=== PATIENT | female | born 1975 | race Caucasian/White ===

== ENCOUNTER 2016-06-09 17:16 | Inpatient (IN) ==
--- NOTE | 2016-06-09 17:57 | Emergency Department Note ---
Disposition Clinical Impression: NSTEMI (non-ST elevated myocardial infarction), Smoker Disposition: Admitted As Inpatient Condition: Good Referrals: NO,PCP [Non-Partnered Physician] - Forms: ED Satisfaction Letter Chest Pain HPI - General Chief Complaint: ED Chest Pain Stated Complaint: L arm pain, chest heaviness Time Seen by Provider: 06/09/16 17:30 Source: patient Limitations: no limitations Vital Signs Reviewed: Yes Nursing Notes Reviewed: Yes - History of Present Illness HPI Narrative: 39-year-old female presents with chief complaint of chest pain that started at 4 :00 in the morning described as dull chest tightness over the left upper chest and left arm that is constant. Her pain is improved since this morning. Pain is associated with shortness of breath that is not exertional in nature, diaphoresis, nausea. She denies vomiting. Patient says she has family history of sudden cardiac of her father at age 49. She is a smoker and smokes 1 pack per day. Denies any history of cardiac disease, hypertension. While signs are normal. We will obtain EKG and troponin and chest x-ray. Severity scale (1-10): 0 - Related Data Home Medications Medication Instructions Recorded Confirmed Ibuprofen/Pseudoephedrine HCl 2 each PO QAM 06/09/16 06/09/16 [Advil Cold-Sinus Liqui-Gels] Omeprazole Magnesium [Prilosec Otc] 20 mg PO DAILY 06/09/16 06/09/16 Tacrolimus [Protopic] 1 appl TP 3XW 06/09/16 06/09/16 Allergies Allergy/AdvReac Type Severity Reaction Status Date / Time Sulfa (Sulfonamide Allergy Rash Verified 06/09/16 17:19 Antibiotics) sulfamethoxazole Allergy Rash Verified 06/09/16 17:19 [From Bactrim] trimethoprim [From Bactrim] Allergy Rash Verified 06/09/16 17:19 bupropion [From Wellbutrin] AdvReac Palpitation Verified 06/09/16 20:09 s formaldehyde AdvReac Unknown Verified 06/09/16 20:09 polyethylene glycol AdvReac Unknown Verified 06/09/16 20:09 Review of Systems: ROS: Constitutional: Denies fevers chills, admits to diaphoresis HEENT: Denies runny nose, sinus congestion, sore throat Heart: admits to chest pain, palpitations Lungs: admits to shortness of breath, cough Abdomen: Denies abdominal pain, vomiting, diarrhea admits to nausea : Denies dysuria Extremeties: Denies leg cramps, swelling Neuro: denies numbness and tingling Psych: denies anxiety and depression Chest Pain PMH - Past Medical History Medical history: Reports: no medical history Psychiatric history: Reports: anxiety, panic disorder - Social History Smoking Status: Current every day smoker Alcohol use: Reports: none Drug use: Reports: none Physical Exam General: Alert and oriented to place, time, self Heart: Regular rate and rhythm no murmur, reproducible chest pain with palpation Lungs: Clear to auscultation bilaterally Abdomen: Soft nontender nondistended with positive bowel sounds Extremities: Normal capillary refill, absent pedal edema Psych: normal mood and affect - General Limitations: no limitations General appearance: alert Course Course Narrative: Patient's vitals are stable, EKG shows sinus rhythm. Chest x-ray negative for acute changes. - Reevaluation(s) Reevaluation #1: Troponin was 10.01. Interventional cardiology notified and patient will undergo emergent cardiac catheterization. Patient was given aspirin 325 mg, and Birllinta 100mg, 1 L fluid bolus as patient's blood pressure decreased into systolics 80s and repeat partial pressure was not systolics 90s. Chest x-ray was within normal limits. Time: 20:14 Vital Signs Temperature 98.2 F 06/09/16 17:19 Pulse Rate 66 06/09/16 17:19 Respiratory Rate 14 06/09/16 17:19 Blood Pressure 109/71 06/09/16 17:19 O2 Sat by Pulse Oximetry 100 06/09/16 17:19 Temperature 98.2 F 06/09/16 17:19 Pulse Rate 71 06/09/16 20:00 Respiratory Rate 16 06/09/16 20:00 Blood Pressure 98/61 06/09/16 20:00 O2 Sat by Pulse Oximetry 100 06/09/16 20:00 Oxygen Delivery Oxygen Delivery Room Air Chest Pain - MDM Narrative Medical decision making narrative: NSTEMI with ongiong ischemia as patient continues to have chest pain, decrease in BP with systolic in 90s, and troponin 10.05. EKG shows sinus rhythm without st elevation or depression. Patient will undergo cardiac catherization. Dr. Montalvo accepted patient. - Lab Data Result diagrams: 06/09/16 18:59 06/09/16 18:59 Lab Results 06/09/16 06/09/16 06/09/16 Range/Units 18:59 18:59 18:59 WBC 10.9 (4.3-11.1) K/mcL RBC 4.06 (3.82-4.97) M/mcL Hgb 12.3 (11.5-15.4) g/dL Hct 36.8 (35.3-44.9) % MCV 90.6 (83.0-100.0) fL MCH 30.3 (28.0-33.3) pg MCHC 33.4 (31.6-35.5) g/dL RDW 13.6 (11.5-14.5) % Plt Count 301 (140-400) K/mcL MPV 8.4 L (9.4-12.4) fL Immature Plt Fraction 1.6 (1.1-6.1) % PT 12.0 (9.4-12.1) Seconds INR 1.1 Sodium (136-145) mEq/L Potassium (3.5-4.5) mEq/L Chloride (98-109) mEq/L Carbon Dioxide (19-29) mEq/L BUN (7-20) mg/dL Creatinine (0.57-1.11) mg/dL Est GFR ( Amer) (> 60) Est GFR (Non-Af Amer) (> 60) BUN/Creatinine Ratio (6-26) Glucose (70-99) mg/dL Calculated Osmolality (280-300) Calcium (8.6-10.8) mg/dL Troponin I 10.05 H* (0-0.03) ng/mL 06/09/16 Range/Units 18:59 WBC (4.3-11.1) K/mcL RBC (3.82-4.97) M/mcL Hgb (11.5-15.4) g/dL Hct (35.3-44.9) % MCV (83.0-100.0) fL MCH (28.0-33.3) pg MCHC (31.6-35.5) g/dL RDW (11.5-14.5) % Plt Count (140-400) K/mcL MPV (9.4-12.4) fL Immature Plt Fraction (1.1-6.1) % PT (9.4-12.1) Seconds INR Sodium 138 (136-145) mEq/L Potassium 4.0 (3.5-4.5) mEq/L Chloride 103 (98-109) mEq/L Carbon Dioxide 26 (19-29) mEq/L BUN 15 (7-20) mg/dL Creatinine 0.77 (0.57-1.11) mg/dL Est GFR ( Amer) > 60 (> 60) Est GFR (Non-Af Amer) > 60 (> 60) BUN/Creatinine Ratio 19 (6-26) Glucose 88 (70-99) mg/dL Calculated Osmolality 286 (280-300) Calcium 9.7 (8.6-10.8) mg/dL Troponin I (0-0.03) ng/mL - EKG Data EKG results narrative: Sinus rhythm, no ST-T wave changes, no T-wave inversions, 1 PAC, EKG normal sinus rhythm.
--- NOTE | 2016-06-09 18:05 | Emergency Department Note ---
START Narrative - START START: I examined this patient and my medical decision-making was reviewed with the SEX OFFENDER TREATMENT PROFESSIONAL/PA/Advanced Practice Nurse/Resident Physician. I agree with the documented findings, disposition and treatment plan as described except to the extent set forth below. Patient does have chest tightness which began at 4:00 in the morning at home and woke her from sleep and has been constant. I did confirm this with her twice. Does have associated diaphoresis. No vomiting. Was lightheaded earlier but not now. It does radiate to the left arm. Concerning initial story and I did review the EKG showing normal sinus rhythm with a rate of 62 without acute ischemic change - there are some PVCs. The patient does have labs ordered including troponin, chest x-ray and will be watched on the groundwater monitoring technician [id number] We did get the troponin back which was significantly elevated and I did speak with the patient again and she does have ongoing pain. Additional concern is that the patient's blood pressure did decrease to 80 systolic and a recheck was 90, so she is getting a bolus of IV fluid and did receive aspirin. I did speak with the document coordinator Dr. Montalvo and he did ask that the blood bank laboratory professional be activated so we did do that and I also spoke with the pharmacist and coordinated doses of heparin bolus and Brilinta which is 180 mg and these were given to the patient. I did check on her again and explained the plan. The patient will be admitted. 2000 Critical care time: 30 minutes
[2016-06-09] MEDS ORDERED: Aspirin 81 MG TAB.CHEW PO STA (19:44)
[2016-06-09 19:45] LABS: Hematocrit 36.8 % (35.3-44.9); Hemoglobin 12.3 g/dL (11.5-15.4); Immature Platelets 1.6 % (1.1-6.1); Mean Corpuscular HGB Conc 33.4 g/dL (31.6-35.5); Mean Corpuscular Hemoglobin 30.3 pg (28.0-33.3); Mean Corpuscular Volume 90.6 fL (83.0-100.0); Mean Platelet Volume 8.4 fL (9.4-12.4); Red Blood Count 4.06 M/mcL (3.82-4.97); Red Cell Distribution Width 13.6 % (11.5-14.5)
[2016-06-09] MEDS ORDERED: 0.9 % Sodium Chloride 1,000 ML ONE (19:49)
[2016-06-09] MEDS ORDERED: *HR* Ticagrelor 90 MG TABLET PO ONE (19:53)
[2016-06-09] MEDS ORDERED: *HR* Heparin 5,000 UNIT/ML VIAL IVP ONE (19:54)
[2016-06-09] MEDS ORDERED: *HR* Heparin 5,000 UNIT/ML VIAL ONE (19:55)
[2016-06-09] MEDS ORDERED: *HR* Ticagrelor 90 MG TABLET ONE (19:55)
[2016-06-09 20:09] LABS: BUN/Creatinine Ratio 19 (6-26); Blood Urea Nitrogen 15 mg/dL (7-20); Calcium 9.7 mg/dL (8.6-10.8); Carbon Dioxide 26 mEq/L (19-29); Chloride 103 mEq/L (98-109); Glucose 88 mg/dL (70-99); Osmolality,Calculated 286 (280-300); Sodium 138 mEq/L (136-145); eGFR For African Americans > 60 (> 60); eGFR For Non-African Americans > 60 (> 60)
--- NOTE | 2016-06-09 20:10 | Cardiology History & Physical ---
Date of Encounter: 06/10/16 Time of Encounter: 21:00 Assessment and Plan (1) Acute DE Current Visit: Yes Status: Acute Ongoing chest discomfort despite medical therapy and troponin 10. Acute DE - emergent left heart catheterization. A/R/B discussed with the patient and she is aware and agreeable with proceeding after obtaining verbal consent. Aspirin , heparin and brilinta given. EF assessment will be completed. The assessment and plan as outlined above was discussed with the patient and/or family members who expressed understanding and agreement. All questions were answered. Qualifiers: Myocardial infarction ST status: non-ST elevation myocardial infarction Qualified Code(s): I21.4 - Non-ST elevation (NSTEMI) myocardial infarction (2) Smoker Current Visit: Yes Status: Acute Cessation counseled. The assessment and plan as outlined above was discussed with the patient and/or family members who expressed understanding and agreement. All questions were answered. (3) Chest pain Current Visit: Yes Status: Acute see acute DE. The assessment and plan as outlined above was discussed with the patient and/or family members who expressed understanding and agreement. All questions were answered. Qualifiers: Chest pain type: chest pain due to myocardial ischemia Ischemic chest pain type: unstable angina pectoris Qualified Code(s): I20.0 - Unstable angina History of Present Illness Chief complaint: chest pain HPI: Ms. Guerrero is a 41 year old female without cardiac history but 1ppd smoker presents with chest discomfort - severe - starting early this morning unrelenting and without relief despite aspirin and nitroglycerin. Troponin found to be 10 and with ongoing chest discomfort, calibration laboratory technician activated emergently. Chest discomfort associated with mild dyspnea and diaphoresis. Past Med Surg Social Fam HX - Past Medical History Medical history: no medical history Psychiatric history: anxiety, panic disorder - Social History Smoking Status: Current every day smoker Smokeless Tobacco Status: No Alcohol use: none Drug use: none Medications and Allergies Ibuprofen/Pseudoephedrine HCl [Advil Cold-Sinus Liqui-Gels] 2 each PO QAM [History] Omeprazole Magnesium [Prilosec Otc] 20 mg PO DAILY 06/09/16 [History] Tacrolimus [Protopic] 1 appl TP 3XW 06/09/16 [History] Allergies Sulfa (Sulfonamide Antibiotics) Allergy (Verified 06/09/16 17:19) Rash sulfamethoxazole [From Bactrim] Allergy (Verified 06/09/16 17:19) Rash trimethoprim [From Bactrim] Allergy (Verified 06/09/16 17:19) Rash bupropion [From Wellbutrin] Adverse Reaction (Verified 06/09/16 20:09) Palpitations formaldehyde Adverse Reaction (Verified 06/09/16 20:09) Unknown polyethylene glycol Adverse Reaction (Verified 06/09/16 20:09) Unknown All Systems Review: A 10-system review of systems was performed and is negative for pertinent findings except as documented above in the HPI. - Constitutional Constitutional: no chills, no fever(s) - EENT Eyes: no blurred vision, no loss of vision Nose, mouth and throat: no bleeding gums, no epistaxis - Cardiovascular Cardiovascular: chest pain at rest, chest pain with exertion - Respiratory Respiratory: no dyspnea, no hemoptysis - Gastrointestinal Gastrointestinal: no hematemesis, no hematochezia - Genitourinary Genitourinary: no hematuria, no nocturia - Musculoskeletal Musculoskeletal: no muscle cramps, no muscle weakness - Integumentary Integumentary: no erythema, no unusual bruising - Neurological Neurological: no focal weakness, no loss of vision - Psychiatric Psychiatric: no anxiety, no depression - Hematological/Lymphatic Hematologic/Lymphatic: no easy bleeding, no easy bruising Physical Examination Vital Signs, Last 4 Hours Temp Pulse Resp BP Pulse Ox 06/09/16 20:00 71 16 98/61 100 06/09/16 19:36 54 18 90/52 100 06/09/16 18:17 73 18 105/73 100 06/09/16 17:39 61 18 100 06/09/16 17:19 98.2 F 66 14 109/71 100 General: Other (distressed) HEENT: Atraumatic Neck: No JVD Cardiac: Reg Rate and Rhythm Lungs: Normal Breath Sounds Neuro: Alert and responsive Abdomen: Soft Skin: No rashes noted on visualized skin Musculoskeletal: No Chest Wall Tenderness Extremities: No Edema Results 06/10/16 02:33 06/10/16 02:33 Lab Results 06/09/16 06/09/16 18:59 18:59 WBC 10.9 Hgb 12.3 Hct 36.8 Plt Count 301 Troponin I 10.05 H*
[2016-06-09 20:19] LABS: INR 1.1
[2016-06-09] MEDS ORDERED: *HR* FentaNYL (PF) 100 MCG/2 ML VIAL ONE (20:22)
[2016-06-09] MEDS ORDERED: Verapamil 5 MG/2 ML VIAL ONE (20:22)
[2016-06-09] MEDS ORDERED: *HR* Midazolam HCl 2 MG/2 ML VIAL ONE ×3 (20:22→21:03)
[2016-06-09] MEDS ORDERED: 0.9 % Sodium Chloride 2,000 ML ONE (20:23)
[2016-06-09] MEDS ORDERED: *HR* Heparin 10,000 UNIT/10 ML VIAL ONE (20:23)
[2016-06-09] MEDS ORDERED: Heparin 1,000 UNITS/500 mL NS 500 ML ONE (20:23)
[2016-06-09] MEDS ORDERED: Nitroglycerin 1,000 MCG/10 ML VIAL IV ONE (20:23)
--- NOTE | 2016-06-09 20:47 | Pre-Sedation Evaluation ---
Pre-sedation evaluation - Pre-sedation checklist Date of procedure: 06/09/16 Procedure: [facility] Recent Vitals: Last Vital Signs Temp 98.2 F 06/09/16 17:19 Pulse 71 06/09/16 20:00 Resp 18 06/09/16 20:42 BP 98/31 06/09/16 20:42 Pulse Ox 100 06/09/16 20:00 H&P (including ROS) documented in medical record: Yes Previous reaction to sedatives/anesthetics: No Dietary Status: unknown Airway Assessment: Patient can open mouth completely, TMJ function normal Dentition: No loose teeth or bridges Possible difficult airway: No ASA Classification *see protocol: CLASS II-Mild systemic disease, E-EMERGENCY- Add to any of the above to indicate emergent Plan of Care: Pt appropriate candidate for procedure/moderate/conscious sedation , Risks/benefits of procedure/sedation discussed w/ patient/family, If not NPO; Risk of intake outweiged by necessity to perform procedure
[2016-06-09] MEDS ORDERED: *HR* HYDROcodone/Acet 5/325 mg TABLET PO PRN (20:49)
[2016-06-09] MEDS ORDERED: *HR* Morphine 2 MG/ML SYRINGE IVP PRN (20:49)
[2016-06-09] MEDS ORDERED: Acetaminophen 325 MG TABLET PO PRN (20:49)
[2016-06-09] MEDS ORDERED: Ondansetron 4 MG/2 ML VIAL IVP PRN (20:49)
[2016-06-09] MEDS ORDERED: Nicotine 21 MG PATCH.TD24 TD PRN (20:51)
[2016-06-09] MEDS ORDERED: Tirofiban 5 MG/100ML 5 MG/100 ML BAG IV ONE (21:08)
--- NOTE | 2016-06-09 21:46 | Invasive Diagnostic Lab Proc ---
Name: Sandra Guerrero Date of Study: 06/09/2016 Date: 1975 Ht: 66.9in Medical Record#: [id number] Age: 41 Wt: 194.89lb Gender: Female BSA: 2. Order #: [id number] BMI: 30.59 Physicians Procedure Physician: Kamaljit Montalvo MD, [facility] Referring MD: Referring MD: Staff Name Position Time In Sites, Samantha RT (R) Monitor 08:57 PM Taylor Sen RT Scrub 08:57 PM Heydi Fuentes RN Shoe Worker 08:57 PM Indications Indication Non-Stemi Acute SD Procedures Performed Procedure L HRT ARTERY/VENTRICLE ANGIO PRQ CARD REVASC SD 1 VSL Pre-Procedure Checklist Informed consent is complete signed and on chart. H\\T\\P is on chart. ID band is on and ID verified with patient. Patient NPO for procedure The procedure was described for the patient and questions were answered. Blood Pressure: 135/80 ECG is on chart. Rhythm: NSR Plan of Care Patient will tolerate the procedure without complications. Adequate level of comfort will be maintained. Hemodynamics will remain stable Patient will recover from procedure without complications. Respiratory function will be maintained. Cardiac rhythm will remain stable. Patient temperature will be maintained. Patient and/or family have verbalized understanding of the procedure. Patient Education Intravenous Access Time IV Size Location DC'd Fluid/Drip Rate Units RN 08:33 PM 20g 1 1/4" Patent On Arrival Rt Arm 0.9NaCl 25 ml/hr Heydi Feuntes RN 08:33 PM 18g 1 1/4" Patent On Arrival Lt Antecubital Allergies Sulfa (Sulfonamide Antibiotics) polyethylene glycol SULFA (sulfonamide) Propylene Glycol formaldehyde trimethoprim sulfamethoxazole Vital Signs Time BP (mmHg) HR (bpm) O2 Sat. RR (bpm) LOC 08:56 PM 135 / 80 68 100 % 16 5 = Fully awake and oriented or at pre-proc level 09:01 PM / % 5 = Fully awake and oriented or at pre-proc level 09:01 PM / % 5 = Fully awake and oriented or at pre-proc level 08:55 PM 135 / 80 70 100 % 17 09:00 PM 111 / 67 65 100 % 10 09:05 PM 110 / 64 71 96 % 16 09:07 PM 111 / 65 73 96 % 14 09:10 PM 109 / 69 72 96 % 14 09:12 PM 116 / 76 77 96 % 14 09:15 PM 110 / 66 78 96 % 14 09:18 PM 112 / 73 78 97 % 14 09:20 PM 117 / 76 78 98 % 14 09:25 PM 119 / 80 78 100 % 14 Procedural Medications Time Medication Dose Units Method Given By 09:00 PM Oxygen 2 L/min nasal cannula Heydi Fuentes RN 09:00 PM Versed 3 mg Intravenous Heydi Fuentes RN 09:00 PM Fentanyl 50 mcg Intravenous 09:01 PM Fentanyl 50 mcg Intravenous Heydi Fuentes RN 09:02 PM Versed 1 mg Intravenous Heydi Fuentes RN 09:05 PM Nitroglycerin 100 mcg Intracoronary Kamaljti Montalvo MD 09:11 PM Aggrastat Bolus: 46 ml Intravenous Heydi Fuentes RN 09:11 PM Aggrastat 5mg/100ml 16.5 ml Intravenous Heydi Fuentes RN ASA Classification: CLASS II- Mild systemic disease (i.e. well-controlled diabetes, hypertension, asthma, cigarette smoking) Emergent Procedure: ASA score is assumed Candido Score Preprocedure Postprocedure Activity 2- Moves 4 extremities sustained head lift Activity 2- Moves 4 extremities sustained head lift Circulation 2- SBP +/= 20 points of pre-anesthetic level Circulation 2- SBP +/= 20 points of pre-anesthetic level Consciousness 2- Awake and alert oriented x 3 Consciousness 2- Awake and alert oriented x 3 O2 Saturation 2- Able to maintain O2 satruation of 92% on room air O2 Saturation 2- Able to maintain O2 satruation of 92% on room air Respiratory 2- Able to deep breathe and cough well Respiratory 2- Able to deep breathe and cough well Total Score 10 Total Score 10 Contrast Agent: Isovue Diagnostic Contrast: 64 ml Total Contrast: 64 ml Fluoro Dose: 440 mGy Activated Clotting Time Time Seconds to Clot 09:22 PM 182 Procedure Log Time Note Enter By 08:29 PM CathStat 08:44 PM Pt arrived to pit laborer 2 at 20:44 scoates 08:44 PM Samantha Harkins RT (R) Position: Monitor Time in: 20:44 scoates 08:44 PM Taylor Sen RT Position: Scrub Time in: 20:44 scoates 08:44 PM Heydi Fuentes RN Position: Shoe Worker Time in: 20:44 scoates 08:45 PM Patient charges- Angio tray pack, Navilyst 3mm J, Pulse Oximetry and ACIST tubing and transducer tsites 08:47 PM Hair removed from procedure site in procedure lab using clippers. Bilateral groin prepped with Chloraprep by Shahana, Samantha HICKEY (R), safety strap applied then patient was draped. Skin intact. tsites 08:49 PM Time: 20:49 Oxygen on at 2 L/min per nasal cannula by Heydi Fuentes RN tsites 08:51 PM Physician arrived 20:51 tsites 08:54 PM Vitals capture started with the following parameters, Patient=Adult, Interval=5 min, Initial Whmcqsfm=833 mmHg, Deflation Rate=5 mmHg, Cuff placed on Left Arm 08:55 PM HR=70 bpm, MDWH=711/80 mmhg, AiN7=274.0 %, Resp=17 B/min 08:58 PM Procedure start 20:58 tsites 08:58 PM Time out performed according to hospital policy tsites 08:59 PM Recorded ECG: HR=67 Condition=Condition 1 09:00 PM HR=65 bpm, ALBS=613/67 mmhg, WsK8=002.0 %, Resp=10 B/min 09:00 PM Time: 21:00 Versed 3 mg Intravenous Given by Heydi Fuentes RN [facility] 09:00 PM Time: 21:00 Fentanyl 50 mcg Intravenous Given by Heydi Fuentes RN [facility] 09:01 PM Time: 21:01 Patient comfortable and pain free: Yes tsites 09: PM Time: 21:01LOC: 5 = Fully awake and oriented or at pre-proc level tsites 09:01 PM Access obtained by percutaneous puncture. 6Fr 10cm Terumo Talpa sheath placed in right Femoral artery. [id number] tsites 09:01 PM 5Fr FR 4 catheter inserted over the wire DNC tsites 09:01 PM RCA angiography performed in multiple views. tsites 09: PM 0.035 145cm Navilyst 3mmJ wire [id number] [facility] 09:02 PM Time: 21:01 Fentanyl 50 mcg Intravenous Given by Heydi Fuentes RN [facility] 09:02 PM Time: 21:02 Versed 1 mg Intravenous Given by Heydi Fuentes RN [facility] 09:02 PM Recorded Pressure: Ao, HR=69, Condition=Condition 1 (Aorta) Ao 80/64/72 09:02 PM Coronary Dominance: right tsites 09:02 PM Lesion found in Mid RCA. Pre Stenosis: 99 Pre SKYLA Flow: tsites 09:03 PM LCA angiography performed in multiple views. tsites 09:03 PM PCI Status Emergency tsites 09:03 PM PCI Indication: PCI for high risk Non-STEMI or unstable angina tsites 09:03 PM PCI lesion in Mid RCA. tsites 09:03 PM 6Fr JR 4 Runway guide catheter was used to cannulate the PCI vessel successfully. reused? No tsites 09:03 PM Inflation device was opened. tsites 09:05 PM HR=71 bpm, QPLH=368/64 mmhg, SpO2=96.0 %, Resp=16 B/min 09:05 PM .014 PT Graphix 182cm guide wire across target lesion- successful. reused? No tsites 09:05 PM Time: 21:05 Nitroglycerin 100 mcg Intracoronary Given by Kamaljit Montalvo MD tsites 09:06 PM NIBP STAT measurement started. 09:06 PM 2.0 mm x 12 mm Emerge Monorail balloon across target lesion- successful. reused? No tsites 09:07 PM Balloon inflated @ 14 ryder for 10 seconds tsites 09:07 PM HR=73 bpm, TKJR=161/65 mmhg, SpO2=96 %, Resp=14 B/min 09:08 PM Balloon catheter removed intact. tsites 09:08 PM 2.5mm x 32mm Synergy drug-eluting stent across target lesion- successful Lot #[id number] tsites 09:09 PM Stent deployed @ 12 ryder for 13 seconds tsites 09:10 PM Recorded Pressure: Ao, HR=72, Condition=Condition 1 (Aorta) Ao 72/51/61 09:10 PM HR=72 bpm, HJKJ=528/69 mmhg, SpO2=96 %, Resp=14 B/min 09:11 PM 3.0 mm x 8mm NC Emerge balloon across target lesion- successful. reused? No tsites 09:11 PM Time: 21:11 Aggrastat Bolus: 46 ml Intravenous Given by Heydi Fuentes RN Estrada pump tsites 09:12 PM Time: 21:11 Aggrastat 5mg/100ml 16.5 ml Intravenous Given by Heydi Fuentes RN Estrada pump tsites 09:12 PM NIBP STAT measurement started. 09:12 PM Balloon inflated @ 12 ryder for 8 seconds tsites 09:12 PM HR=77 bpm, YKJT=144/76 mmhg, SpO2=96 %, Resp=14 B/min 09:12 PM Balloon inflated @ 16 ryder for 8 seconds tsites 09:13 PM Recorded Pressure: Ao, HR=77, Condition=Condition 1 (Aorta) Ao 95/66/80 09:13 PM Balloon inflated @ 18 ryder for 14 seconds tsites 09:14 PM Balloon inflated @ 20 ryder for 6 seconds tsites 09:15 PM HR=78 bpm, IFWB=047/66 mmhg, SpO2=96.0 %, Resp=14 B/min 09:15 PM Balloon catheter removed intact. tsites 09:15 PM Guide wire removed intact. tsites 09:15 PM Guide catheter removed intact. tsites 09:16 PM 5Fr Pigtail catheter inserted over the wire [facility] tsites 09:16 PM Catheter selectively placed in left ventricle tsites 09:16 PM Time: 21:01LOC: 5 = Fully awake and oriented or at pre-proc level tsites 09:17 PM Bolus angiogram of left Ventricle complete: 10 ml/sec for a total of 20 mls tsites 09:17 PM Recorded Pressure: LV, Ao, HR=74, Condition=Condition 1 (Left Ventricle) LV 91/18/35, (Aorta) Ao 96/55/72 09:17 PM Catheter removed tsites 09:17 PM Wire removed tsites 09:18 PM Bolus angiogram of right Femoral complete: 2 ml/sec for a total of 4 mls tsites 09:18 PM NIBP STAT measurement started. 09:18 PM HR=78 bpm, JWQM=442/73 mmhg, SpO2=97.0 %, Resp=14 B/min 09:20 PM Procedure completed at 21:20 tsites 09:20 PM HR=78 bpm, DSAZ=563/76 mmhg, SpO2=98 %, Resp=14 B/min 09:21 PM Sign out completed: Radiation Dose 440 mGy Fluoro Time: 5.2 Isovue 370 - 500ml contrast 64 ml given by Kamaljit Montalvo MD, [facility]. Complications: NoneCardiac Rehab Consult needed: YesConfirmed administered medications: Yes tsites 09:23 PM At 21:22 the ACT was 182 seconds. tsites 09:25 PM Isovue 370 - 500ml,1 Bottle(s) used. tsites 09:25 PM Sheath left in place to be pulled on floor/holding areaV+Pad tsites 09:25 PM HR=78 bpm, RSYS=364/80 mmhg, IlJ7=901 %, Resp=14 B/min 09:25 PM Post ECG NSR tsites 09:25 PM Post Blood Pressure 119/80 tsites 09:25 PM 21:25 Post Pulses Bilateral DP \\T\\ PT 2+ tsites 09:26 PM Information taught Cardiac Cath and PCI tsites 09:27 PM Education needs Procedure, Plan of Care, and Responsibilities of Patient in Care tsites 09:27 PM Learning barriers :None tsites 09:27 PM Education Methods Verbal tsites 09:27 PM Education evaluation Able to repeat information tsites 09:27 PM Site status No bleeding/hematoma - Rt Groin as reported by Taylor Sen RT at 21:27 tsites 09:28 PM Plavix, Effient or Brilinta given Yes in ER tsites 09:32 PM Report given to emi AVILES Pt taken to ICU Room #5. 21:32 tsites 09:32 PM Delay to floor No tsites 09:32 PM Patient out of room: 21:32 tsites 09:33 PM Family placed in consult room. tsites 09:35 PM Lesion found in Mid LAD. Pre Stenosis: 30 Pre SKYLA Flow: tsites 09:36 PM Lesion found in Proximal Circumflex. Pre Stenosis: 30 Pre SKYLA Flow: tsites 09:36 PM Mid/Distal Left Anterior Descending Coronary Artery and diagonal branches with 30% stenosis. If graft is supplying this area, 0 % stenosis tsites 09:36 PM Circumflex, Obtuse Marginal, Left Posterior Descending, and Left Posterolateral Coronary Arteries with 30 % stenosis. If graft is supplying this area, 0 % stenosis tsites 09:36 PM Right Coronary, Right Posterior Descending Arteries with Right Posterolateral and Acute Marginal branches with 99 % stenosis. If graft is supplying this area, 0 % stenosis tsites Complications Complication None Hemodynamics Pressures Site Systolic/A Wave Diastolic/V Wave Mean AO 80 64 72 AO 72 51 61 AO 95 66 80 LV 91 18 35 AO 96 55 72 Post Procedure Information Blood Pressure: 119/80 mmHg Rhythm: NSR Post procedural instructions were given Closure Device Time Device Success/Fail 06/09/2016 9:33:00 PM Manual Compression Site Checks Time Location Status Staff Sheath In? Note 09:27 PM Rt Groin No bleeding/hematoma Taylor Sen RT Pulses Time Site Pre-Procedure Post-Procedure Note 06/09/2016 8:33:00 PM Bilateral DP \\T\\ PT 2+ 9:25:00 PM Bilateral DP \\T\\ PT 2+ Updated by [facility], RT (R) on 06/09/2016 9:38:45 PM [facility], RT electronically signed on 06/09/2016 9:39:53 PM with status of Final
[2016-06-09] MEDS ORDERED: *HR* LORazepam 2 MG/ML VIAL IVP PRN (21:50)
[2016-06-09] MEDS ORDERED: Tirofiban 12.5 MG/250ML 12.5 MG/250 ML BAG IVC SCH (22:00)
[2016-06-09] MEDS ORDERED: *HR* Atropine Sulfate 1 MG/10 ML SYRINGE ONE (22:25)
[2016-06-10 02:51] LABS: Basophils % 0.3 %; Eosinophils # 0.1 K/mcL (0.0-0.6); Eosinophils % 0.9 %; Hematocrit 34.9 % (35.3-44.9); Hemoglobin 11.7 g/dL (11.5-15.4); Immature Granulocytes % 0.3 % (0-4); Lymphocytes # 2.8 K/mcL (0.6-4.6); Lymphocytes % 25.7 %; Mean Corpuscular HGB Conc 33.5 g/dL (31.6-35.5); Mean Corpuscular Hemoglobin 30.6 pg (28.0-33.3); Mean Corpuscular Volume 91.4 fL (83.0-100.0); Mean Platelet Volume 8.8 fL (9.4-12.4); Monocytes # 0.6 K/mcL (0.0-1.3); Monocytes % 5.2 %; Neutrophils # 7.3 K/mcL (1.6-8.9); Platelet Count 250 K/mcL (140-400); Red Blood Count 3.82 M/mcL (3.82-4.97); Red Cell Distribution Width 13.8 % (11.5-14.5); Segmented Neutrophils % 67.6 %
[2016-06-10 03:03] LABS: BUN/Creatinine Ratio 17 (6-26); Blood Urea Nitrogen 12 mg/dL (7-20); Calcium 8.4 mg/dL (8.6-10.8); Carbon Dioxide 23 mEq/L (19-29); Chloride 107 mEq/L (98-109); Glucose 120 mg/dL (70-99); Osmolality,Calculated 285 (280-300); Potassium 3.3 mEq/L (3.5-4.5); Sodium 137 mEq/L (136-145); eGFR For African Americans > 60 (> 60); eGFR For Non-African Americans > 60 (> 60)
--- NOTE | 2016-06-10 07:26 | Event Note ---
Date of Encounter: 06/10/16 Time of Encounter: 00:00 - Cardiology Event Note PCI RCA CLARA x 1 for 99% stenosis/thrombus SKYLA 2 flow. Otherwise minimal disease with normal EF. Femoral access given small caliber radial. Patient stable to ICU.
--- NOTE | 2016-06-10 08:31 | Invasive Diagnostic Lab ---
Name: Sandra Guerrero Date of Study: 06/09/2016 Date: 1975 Ht: 170.0 cm /66.9 in Medical Record#: [id number] Age: 41 Wt: 88.4 kg / 194.89 lb Account/Order#: [id number] Gender: Female BSA: 2. Order #: [id number] Fluoro Dose: 440 mGy BMI: 30.59 Procedure Physician: Kamaljit Montalvo MD, [facility] Referring MD: Referring MD: Procedures Performed: LEFT HEART CATH PCI of Acute MO Indications: Non-Stemi, Acute MO Impressions: There is severe one vessel coronary artery disease. The left ventricle is normal and has normal contractility EF 65% Patient had successful PTCA/Drug-Eluting Stent placement in the mid RCA. Recommendations: Optimal medical therapy of patient's disease. Aggressive risk factor modification. Patient being referred for cardiac rehab. History/Risk Factors: Current/Recent Smoker Family History of CAD Procedure Access obtained in the right Femoral artery by percutaneous puncture Patient had successful PTCA/Drug-Eluting Stent placement in the mid RCA. Complications: None Contrast: Isovue 64ml Closure Device: Manual Compression Hemodynamics: Pressures Site Systolic/ A Wave Diastolic/ V Wave End Diastolic/ Mean HR AO 80 64 72 69 AO 72 51 61 72 AO 95 66 80 77 LV 91 18 35 73 AO 96 55 72 75 LV Ventriculography Ejection Method: LV Gram Ejection Fraction: 65% Wall Motion: [place] Anterobasal Normal Anterolateral Normal Apical: Normal Inferoapical Normal Inferobasal Normal Coronary Dominance: right Lesion Findings/Interventions * Left Main Coronary Artery The LMCA is angiographically free of disease. * Left Anterior Descending There is a 30% stenosis in the Mid LAD. Minimal disease in the proximal LAD and diagonal * Circumflex There is a 30% stenosis in the Proximal Circumflex. Minimal disease in the OM * Right Coronary Artery There is a 32 mm long, 95% stenosis in the Mid RCA. The lesion has a SKYLA flow of 2 and has no thrombus present. An intervention was performed on the Mid RCA with a final stenosis of 0%. There were no lesion complications. The final SKYLA flow was 3. Interventional Device(s) Vessel Segment Type Name Diameter (mm) Length (mm) Mid RCA Balloon Emerge Monorail 2 12 Mid RCA Drug Eluting Stent Synergy 2.5 32 Mid RCA Balloon NC Emerge 3 8 Updated by Samantha Harkins, RT (R) on 06/09/2016 9:39:39 PM Kamaljit Montalvo MD, FACC electronically signed on 06/10/2016 8:27:09 AM with status of Final
[2016-06-10] MEDS ORDERED: Aspirin 81 MG TAB.CHEW PO SCH (09:00)
[2016-06-10] MEDS ORDERED: *HR* Ticagrelor 90 MG TABLET PO SCH (09:00)
--- NOTE | 2016-06-10 10:21 | ECHO - Doppler Report ---
Echocardiogram Name: Sandra Guerrero Date of Study: 06/10/2016 Date: 1975 Ht: 67.0 in Medical Record#: [id number] Age: 41 Wt: 199.0 lb Gender: Female BSA: 2.02 Order #: [id number] Location: [facility] Room #: ICU05 Reading Physician: Carmine Chacon DO, [facility], [place] It Teacher: Jose Chavarria RN Ordering Physician: Kamaljit Montalvo MD, [facility] Primary Physician: Gene Rodriguez DO Indications: Acute Coronary Syndrome Impressions: LVEF 60-65%. Normal LV chamber size, wall thickness and function. Indeterminate diastolic function. Tissue Doppler not perormed. Normal right ventricular structure and function. No evidence of pulmonary hypertension. No significant valvular dysfunction. Left Ventricular Wall Motion: Rest Echo Findings All wall segments showed normal motion. Findings: Study Quality * Technically adequate exam. ECG Findings * Normal sinus rhythm. Left Ventricle * LVEF 60-65%. * Normal LV chamber size, wall thickness and function. * Indeterminate diastolic function. Tissue Doppler not perormed. Right Ventricle * Normal right ventricular structure and function. Left Atrium * Mildly dilated left atrium. Right Atrium * Normal right atrial size. Interatrial Septum * No evidence of PFO by color Doppler. Aortic Valve * Trileaflet aortic valve with normal function. * No aortic regurgitation. * No aortic stenosis. Mitral Valve * Normal mitral valve structure and function. * No mitral regurgitation. * No mitral stenosis. Tricuspid Valve * Normal tricuspid valve structure and function. * Trace tricuspid regurgitation. * No evidence of pulmonary hypertension. Pulmonic Valve * Normal pulmonic valve structure and function. * No pulmonic regurgitation. Aorta * Normally sized aortic root. Pericardium * The pericardium appears normal. IVC * Normal IVC dimensions and inspiratory collapse. Pulmonary Artery * Normal visualized portions of the main pulmonary artery. History Hypertension History of Smoking Years 23 Packs 1.5 Family History of CAD History of CAD/PTCA Myocardial Infarction 08/29/2013 a Previous Echo was performed. Measurements: BP: 91/ 61 2D Normal Values RVIDd: 2.90 cm <2.7 cm IVSd: .90 cm 0.6 - 1.0 cm LVIDd: 4.30 cm 3.7 - 5.6 cm LVPWd: .90 cm 0.6 - 1.1 cm LVIDs: 3.00 cm 1.5 - 3.6 cm LA: 3.30 cm 2.0 - 4.0cm %FS: 30.20 cm >25 % LVOT Diam: 2.00 cm LA volume: 62 Mitral Valve Peak E:.87 m/sec Peak A:.58 m/sec E/A Ratio:1.5 Tricuspid Valve TV Regurg Peak Grad: 12.00mmHg TV Regurg Peak Ksip: 1.72m/sec Updated by Carmine Chacon DO, FACZiggy, JAYLENE, FASART on 06/10/2016 10:17:51 AM electronically signed on 06/10/2016 10:18:08 AM with status of Final Wall Motion [place]: 1=Normal, 2=Hypokinesis, 3=Akinesis, 4=Dyskinesis, 5=Aneurysmal, 6=Hyperkinetic, X=Not Visualized (Blank)=Missing
[2016-06-10 12:34] VITALS: BP 114/82
--- NOTE | 2016-06-10 13:46 | Discharge Summary ---
Date of Encounter: 06/10/16 Time of Encounter: 13:40 - Discharge Diagnosis (1) NSTEMI (non-ST elevated myocardial infarction) Priority: Primary Status: Acute (2) Smoker Priority: Secondary Status: Chronic - Discharge Medications Prescriptions: Aspirin 81 mg PO DAILY #30 tab.chew Metoprolol [Lopressor] 12.5 mg PO BID #30 tablet Nicotine Patch [Nicoderm] 21 mg TD DAILY PRN #30 patch.td24 PRN Reason: craving Nitroglycerin 0.4 mg SL Q5-6MIN PRN #25 tab.subl PRN Reason: Chest Pain Rosuvastatin [Crestor] 40 mg PO HS #30 tablet Ticagrelor [Brilinta] 90 mg PO BID #60 tablet Home Medications: Omeprazole Magnesium [Prilosec Otc] 20 mg PO DAILY 06/09/16 [History] Tacrolimus [Protopic] 1 appl TP 3XW 06/09/16 [History] Aspirin 81 mg PO DAILY #30 tab.chew 06/10/16 [Rx] Metoprolol [Lopressor] 12.5 mg PO BID #30 tablet 06/10/16 [Rx] Nicotine Patch [Nicoderm] 21 mg TD DAILY PRN #30 patch.td24 06/10/16 [Rx] Nitroglycerin 0.4 mg SL Q5-6MIN PRN #25 tab.subl 06/10/16 [Rx] Rosuvastatin [Crestor] 40 mg PO HS #30 tablet 06/10/16 [Rx] Ticagrelor [Brilinta] 90 mg PO BID #60 tablet 06/10/16 [Rx] Allergies/Adverse Reactions: Allergies Sulfa (Sulfonamide Antibiotics) Allergy (Verified 06/09/16 17:19) Rash sulfamethoxazole [From Bactrim] Allergy (Verified 06/09/16 17:19) Rash trimethoprim [From Bactrim] Allergy (Verified 06/09/16 17:19) Rash bupropion [From Wellbutrin] Adverse Reaction (Verified 06/09/16 20:09) Palpitations formaldehyde Adverse Reaction (Verified 06/09/16 20:09) Unknown polyethylene glycol Adverse Reaction (Verified 06/09/16 20:09) Unknown Procedures/tests Complete & Pending: Procedures Performed prior 72 hours Category Date Time Status EV echocardiogram Routine Y 06/10/16 20:47 Completed Date of admission: 06/09/16 20:47 Primary care physician: Amy Lewis Consults: 06/09/16 20:49 Consult to Cardiac Rehabilitation-Phase1 [CONS] Routine Comment: Reason for Consult: post op cath Call Completed: Yes Discharging clinician: Nadir Lovett - Patient Status Disposition: Home, Self-Care Condition: Good Overall status at discharge: patient is back to baseline - Discharge Instructions Follow Up With: Gene Rodriguez DO [Primary Care Provider] - Kamaljit Montalvo MD [Partnered Physician] - Additional Instructions: RISK FACTORS: STOP SMOKING: If you smoke, STOP. Smoking or tobacco use significantly increases your risk of heart disease because nicotine causes the arteries to narrow or constrict. It also causes fats to stick to the artery. Your chances of having a heart attack are greatly increased if you continue to smoke. For more information, call the education line for smoking cessation 5-635-[id number] EAT A LOW FAT/CHOLESTEROL/SODIUM DIET: This diet may help reduce your chances of having a heart attack. LIFTING: Avoid lifting anything more than 10 pounds for 5-7 days Prior to straining, laughing, sneezing and/or coughing, apply manual pressure directly over insertion site. ACTIVITY: You may walk or climb stairs as tolerated You can resume sexual activity as tolerated In general, you are encouraged to engage in a minimum of 30 minutes or more of moderate intensity physical activity, such as brisk walking, daily or at least 3 -4 times weekly BATHING Do not submerge the site into water (bath tub, hot tub, swimming pool) for 1 week. This can be a source for infection into the blood stream. You may shower after 24 hours SITE CARE: After 24 hours, you may remove the dressing and leave the site open to air. Keep the site clean and dry. Clean gently and pat dry. You can expect bruising and tenderness that gradually resolve within a week or two. Return to work as instructed per your physician Resume driving as instructed per physician Keep all scheduled follow up appointments Resume medications as instructed IMPORTANT: If prescribed a Platelet Aggregation Inhibitor such as, Plavix, Brilinta or Effient: Duration of therapy is minimum one year These medications are often used in combination with Aspirin in prevention of future heart attacks Never discontinue unless consult with your Art Therapist STROKE (CVA) Risk factors for a stroke are: Age, cigarette smoking, diabetes, excessive alcohol consumption, family history, high blood pressure, overweight, physical inactivity, prior stroke, heart attack, diagnosis of carotid artery stenosis or other artery disease. Warning signs: Sudden numbness or weakness of the face, arm or leg; especially on one side of the body, sudden confusion, trouble speaking or understanding, sudden trouble seeing in one or both eyes, sudden trouble walking, dizziness, loss of balance or coordination, sudden severe headache with no cause. Call 911 or go to the Emergency Room. CONGESTIVE HEART FAILURE: If you have been diagnosed with Congestive Heart Failure (CHF) and your symptoms return, make an appointment with your physician Weigh yourself daily. Notify your physician if you have a weight gain of two or more pounds in one day or five or more pounds in one week. If you experience any difficulty breathing, please call 911 BLEEDING: Although the risk of bleeding is minimal, it can happen. If you have any bleeding from the site, apply firm pressure above the puncture site for 10-15 minutes. If the bleeding does not stop, continue manual pressure and call 911 Contact your physician if: You develop a fever greater than 101 degrees Fahrenheit Your site becomes reddened or has any drainage You have an increase in pain or burning at the site or if a large knot forms at the site. If you experience chest pain, shortness of breath, dizziness, or extreme tiredness, stop the activity and rest. Please notify your physicians office if you experience any of these symptoms and they are not relieved by rest please call 911! - Diet and Activity Activity: return to school once cleared by your PCP/specialist Diet: low fat, low cholesterol, low salt diet - Hospital Course Hospital course: Ms. Guerrero is a 41 year old female with a history of tobacco use who presents with chest pain radiating to her left auxiliary for 12 hours. She was found to have NSTEMI with troponin as high as 10.05. D/t persistent chest pain despite NTG she was taken to the labor specialist. LHC revealed 95% stenosis in her mRCA and she received PTCA/CLARA x 1. There was minimal disease otherwise. There was no complication from her procedure. Procedure completed through right groin access. There is no hematoma or redness. TTE demonstrated preserved LV function. There was no significant valvular disease. She denies recurrent chest pain and is ready for discharge home. Smoking cessation discussed and she agrees to nicotine patch. Cardiac rehab discussed and she would like to proceed as an out pt. Activity restrictions reviewed as above. Time spent discussing smoking cessation with patient: more than 10 minutes - Time Spent with Patient Total time spent providing and/or coordinating discharge services:1hr Greater than 30 minutes Physical Examination Vital Signs, Last 4 Hours Temp Pulse Resp BP Pulse Ox 06/10/16 12:00 79 16 114/82 95 06/10/16 11:24 97.9 F 06/10/16 10:00 76 16 105/62 94 General: Conversant, No Apparent Distress HEENT: Atraumatic, Normocephaly, Mucus Membranes Moist Neck: No JVD, Normal carotid pulses Cardiac: Reg Rate and Rhythm, Normal S1 and S2, No Murmur Lungs: Normal Breath Sounds, No Wheeze, Rales, Rhonchi Neuro: Alert and responsive, No focal deficits noted Abdomen: Soft, Non-Tender Skin: No rashes noted on visualized skin Musculoskeletal: No Chest Wall Tenderness, Other (right groin soft with no hematoma or redness. ) Extremities: No Clubbing, No Cyanosis, No Edema, Normal Pulses
--- NOTE | 2016-06-10 17:19 | Electrocardiograph Report ---
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
--- NOTE | 2016-06-10 17:21 | Electrocardiograph Report ---
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
== END 2016-06-10 15:33 | disposition home or self-care (01) | DRG 247 ==
LOC: ICNU 17:16 → EMEROO 17:16 → ICNU 20:43
PROVIDERS: ADMIT Emergency Medicine; ATTEND Internal Medicine Clinical Cardiac Electrophysiology

== ENCOUNTER 2016-06-11 15:26 | Observation (INO) ==
[2016-06-11] MEDS ORDERED: Aspirin 81 MG TAB.CHEW PO ONE (15:53)
[2016-06-11 15:54] LABS: Basophils # 0.1 K/mcL (0.0-0.2); Basophils % 0.5 %; Eosinophils # 0.1 K/mcL (0.0-0.6); Eosinophils % 0.9 %; Hematocrit 42.3 % (35.3-44.9); Immature Granulocytes % 0.3 % (0-4); Lymphocytes % 30.7 %; Mean Corpuscular HGB Conc 33.6 g/dL (31.6-35.5); Mean Corpuscular Hemoglobin 30.5 pg (28.0-33.3); Mean Platelet Volume 8.5 fL (9.4-12.4); Monocytes # 0.5 K/mcL (0.0-1.3); Monocytes % 5.4 %; Platelet Count 293 K/mcL (140-400); Red Blood Count 4.65 M/mcL (3.82-4.97); Red Cell Distribution Width 13.6 % (11.5-14.5); Segmented Neutrophils % 62.2 %
[2016-06-11 15:55] LABS: Hemoglobin 14.2 g/dL (11.5-15.4)
[2016-06-11] MEDS ORDERED: Nitroglycerin 0.4 MG TAB.SUBL SL PRN (15:55)
[2016-06-11 15:57] LABS: INR 1.1; Prothrombin Time 12.1 Seconds (9.4-12.1)
[2016-06-11 16:00] LABS: Activated Partial Thrombo Time 36.8 Seconds (26.0-36.0)
--- NOTE | 2016-06-11 16:01 | Emergency Department Note ---
Disposition Clinical Impression: Chest pain Qualifiers: Chest pain type: unspecified Qualified Code(s): R07.9 - Chest pain, unspecified Disposition: Admitted As Inpatient Condition: Serious Time of Disposition: 18:42 Chest Pain HPI - General Chief Complaint: ED Chest Pain Stated Complaint: Pain in chest/ down Left arm Source: patient Limitations: no limitations Vital Signs Reviewed: Yes Nursing Notes Reviewed: Yes - History of Present Illness HPI Narrative: Patient is a 41-year-old female with a recent history of IN 2 days ago. Patient was admitted after having chest pain to his go quadrant which prompted her to come to the hospital. Patient had a very high troponin and sent to the [facility] received stenting. Patient was discharged hospital one day ago. Patient started having chest pain symptoms past hour similar to previous chest pain symptoms 2 days ago. Patient is concerned and came to the hospital. Patient states her pain is only about 4/10 with varying size description but all in the left side her chest with pressure and radiation into her left arm. He took her home meds of Advil, aspirin, metoprolol. Patient no previous cardiac history prior to onset of IN to distal. Pt complaint: chest pain Onset (ago): minute(s) Duration: intermittent Onset: during rest Pain Location: left chest Severity: moderate Severity scale (1-10): 4 Quality: tightness, heaviness, sharp, similar to prior IN Improves with: nothing Worsens with: movement - Related Data Home Medications Medication Instructions Recorded Confirmed Omeprazole Magnesium [Prilosec Otc] 20 mg PO DAILY 06/09/16 06/11/16 Tacrolimus [Protopic] 1 appl TP 3XW 06/09/16 06/11/16 Ibuprofen/Pseudoephedrine HCl 1 tab PO QAM 06/11/16 06/11/16 [Advil Cold & Sinus Caplet] Previous Rx's Medication Instructions Recorded Aspirin 81 mg PO DAILY #30 tab.chew 06/10/16 Metoprolol [Lopressor] 12.5 mg PO BID #30 tablet 06/10/16 Nitroglycerin 0.4 mg SL Q5-6MIN PRN #25 tab.subl 06/10/16 Rosuvastatin [Crestor] 40 mg PO HS #30 tablet 06/10/16 Ticagrelor [Brilinta] 90 mg PO BID #60 tablet 06/10/16 Allergies Allergy/AdvReac Type Severity Reaction Status Date / Time Sulfa (Sulfonamide Allergy Rash Verified 06/09/16 17:19 Antibiotics) sulfamethoxazole Allergy Rash Verified 06/09/16 17:19 [From Bactrim] trimethoprim [From Bactrim] Allergy Rash Verified 06/09/16 17:19 bupropion [From Wellbutrin] AdvReac Palpitation Verified 06/09/16 20:09 s formaldehyde AdvReac Unknown Verified 06/09/16 20:09 polyethylene glycol AdvReac Unknown Verified 06/09/16 20:09 All systems ED: reviewed and negative except as stated. Constitutional: Denies: fever, weakness Eyes: Denies: vision change ENT ED: Denies: throat pain, congestion, dysphagia Cardiovascular: Reports: chest pain, dyspnea on exertion. Denies: palpitations Respiratory: Denies: cough, wheezes Gastrointestinal: Denies: abdominal pain, nausea, vomiting Musculoskeletal: Denies: back pain, neck pain Neurological: Denies: headache Psychiatric: Denies: anxiety Endocrine: Denies: fatigue Chest Pain PMH - Past Medical History Medical history: Reports: myocardial infarction Surgical history: Reports: , cholecystectomy Psychiatric history: Reports: anxiety, panic disorder - Social History Smoking Status: Current every day smoker Alcohol use: Reports: none Drug use: Reports: none Physical Exam - General Limitations: no limitations General appearance: alert, in no apparent distress - Head Head exam: atraumatic, normocephalic, normal inspection - Eye Eye exam: Present: normal appearance, PERRL, EOMI. Absent: scleral icterus - ENT ENT exam: normal exam, normal oropharynx, mucous membranes moist - Neck Neck exam: Present: normal inspection, full ROM, trachea midline. Absent: tenderness - Chest Chest inspection: Present: normal inspection, symmetric chest wall rise, tenderness (Left chest wall) - Respiratory Respiratory exam: Present: normal lung sounds bilaterally. Absent: respiratory distress, wheezes - Cardiovascular Cardiovascular exam: Present: regular rate, normal rhythm - Abdominal Exam Abdominal exam: Present: soft, Non-Tender - Extremities Exam Extremities exam: Present: normal inspection, full ROM, normal capillary refill. Absent: tenderness - Back Exam Back exam: Present: normal inspection, full ROM. Absent: tenderness, CVA tenderness (R), CVA tenderness (L) - Neurological Exam Neurological exam: Present: alert, oriented X3, CN II-XII intact - Psychiatric Psychiatric exam: Present: normal affect, normal mood - Skin Skin exam: Present: warm, dry, intact Course - Reevaluation(s) Reevaluation #1: Patient presents with chest pain status post IN 2 days ago. Symptoms similar to previous IN symptoms. Highly chest pain equivalent. High concern for re- infarct. Also worrisome for PE, aortic dissection, Plan Mr. 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 Time: 15:50 Reevaluation #2: Patient's lab work is unremarkable shows a declining troponin of 7.82 day. Patient's previous troponin 10.5 2 years ago. Patient trauma to reduce her pain radiation down the left arm 0 the patient still has left-sided chest pain. Patient states symptoms 4/10 and initially denied nitroglycerin and agreed to the one time. Patient's heart score 5 Current plan to admit to medicine service have scheduled serial troponins followed cardiology. Patient understands and agrees to treatment plan. Time: 16:49 Reevaluation #3: Patient given some lingual nitroglycerin glycerin which reduced her pain and shoulder but still complains of pressure in her chest. Patient received another dose of nitroglycerin as long as her blood pressure can tolerate. Per cardiology patient will be started on heparin and admitted to medicine. Patient will receive serial cardiac enzyme labs. Cardiology will follow-up with patient in the morning. Patient states she is doing well but she is very nervous. I explained the workup with the patient and she understands and agrees to treatment plan. Time: 17:10 Additional Reevaluation(s): Patient is feeling anxious and will receive 0.5 mg of Ativan. 1840hrs. - Consultations Consultation #1: Consulted cardiology, Dr. Felipe who recommends admission to medicine and serial troponins, heparin drip and telemetry and they will see patient in the morning. Time: 16:45 Consultation #2: Dr. Robles the hospitalist has accepted patient for admission. Time 1825 hrs. Time: 18:25 Vital Signs Temperature 98.4 F 06/11/16 15:32 Pulse Rate 67 06/11/16 15:32 Respiratory Rate 16 06/11/16 15:32 Blood Pressure 129/83 06/11/16 15:32 O2 Sat by Pulse Oximetry 100 06/11/16 15:32 Temperature 98.4 F 06/11/16 15:32 Pulse Rate 68 06/11/16 18:58 Respiratory Rate 16 06/11/16 18:58 Blood Pressure 133/86 06/11/16 18:58 O2 Sat by Pulse Oximetry 100 06/11/16 18:58 Oxygen Delivery Oxygen Delivery Room Air Chest Pain - Medical Records Medical records reviewed: Yes I reviewed the patient's medical records. Recent echo on 06/10/2016 shows EF of 60-65%. - Lab Data Lab results reviewed: Yes I reviewed the patient's lab results. Lab results narrative: Short CBC 06/11/16 Range/Units 15:42 WBC 9.6 (4.3-11.1) K/mcL Hgb 14.2 D (11.5-15.4) g/dL Hct 42.3 (35.3-44.9) % Plt Count 293 (140-400) K/mcL Neutrophils # 6.0 (1.6-8.9) K/mcL BMP 06/11/16 Range/Units 15:42 Sodium 139 (136-145) mEq/L Potassium 3.9 (3.5-4.5) mEq/L Chloride 103 (98-109) mEq/L Carbon Dioxide 28 (19-29) mEq/L BUN 10 (7-20) mg/dL Creatinine 0.80 (0.57-1.11) mg/dL Glucose 95 (70-99) mg/dL Calcium 10.0 D (8.6-10.8) mg/dL Cardiac Enzymes 06/11/16 Range/Units 15:42 Troponin I 7.88 H* (0-0.03) ng/mL Result diagrams: 06/11/16 15:42 06/11/16 15:42 Lab Results 06/11/16 06/11/16 06/11/16 Range/Units 15:42 15:42 15:42 WBC 9.6 (4.3-11.1) K/mcL RBC 4.65 (3.82-4.97) M/mcL Hgb 14.2 D (11.5-15.4) g/dL Hct 42.3 (35.3-44.9) % MCV 91.0 (83.0-100.0) fL MCH 30.5 (28.0-33.3) pg MCHC 33.6 (31.6-35.5) g/dL RDW 13.6 (11.5-14.5) % Plt Count 293 (140-400) K/mcL MPV 8.5 L (9.4-12.4) fL Immature Gran % 0.3 (0-4) % Seg Neutrophils % 62.2 % Lymphocytes % 30.7 % Monocytes % 5.4 % Eosinophils % 0.9 % Basophils % 0.5 % Neutrophils # 6.0 (1.6-8.9) K/mcL Lymphocytes # 3.0 (0.6-4.6) K/mcL Monocytes # 0.5 (0.0-1.3) K/mcL Eosinophils # 0.1 (0.0-0.6) K/mcL Basophils # 0.1 (0.0-0.2) K/mcL PT 12.1 (9.4-12.1) Seconds INR 1.1 APTT 36.8 H (26.0-36.0) Seconds Sodium 139 (136-145) mEq/L Potassium 3.9 (3.5-4.5) mEq/L Chloride 103 (98-109) mEq/L Carbon Dioxide 28 (19-29) mEq/L BUN 10 (7-20) mg/dL Creatinine 0.80 (0.57-1.11) mg/dL Est GFR ( Amer) > 60 (> 60) Est GFR (Non-Af Amer) > 60 (> 60) BUN/Creatinine Ratio 13 (6-26) Glucose 95 (70-99) mg/dL Calculated Osmolality 287 (280-300) Calcium 10.0 D (8.6-10.8) mg/dL Troponin I (0-0.03) ng/mL 06/11/16 Range/Units 15:42 WBC (4.3-11.1) K/mcL RBC (3.82-4.97) M/mcL Hgb (11.5-15.4) g/dL Hct (35.3-44.9) % MCV (83.0-100.0) fL MCH (28.0-33.3) pg MCHC (31.6-35.5) g/dL RDW (11.5-14.5) % Plt Count (140-400) K/mcL MPV (9.4-12.4) fL Immature Gran % (0-4) % Seg Neutrophils % % Lymphocytes % % Monocytes % % Eosinophils % % Basophils % % Neutrophils # (1.6-8.9) K/mcL Lymphocytes # (0.6-4.6) K/mcL Monocytes # (0.0-1.3) K/mcL Eosinophils # (0.0-0.6) K/mcL Basophils # (0.0-0.2) K/mcL PT (9.4-12.1) Seconds INR APTT (26.0-36.0) Seconds Sodium (136-145) mEq/L Potassium (3.5-4.5) mEq/L Chloride (98-109) mEq/L Carbon Dioxide (19-29) mEq/L BUN (7-20) mg/dL Creatinine (0.57-1.11) mg/dL Est GFR ( Amer) (> 60) Est GFR (Non-Af Amer) (> 60) BUN/Creatinine Ratio (6-26) Glucose (70-99) mg/dL Calculated Osmolality (280-300) Calcium (8.6-10.8) mg/dL Troponin I 7.88 H* (0-0.03) ng/mL - Radiology Data Radiology results reviewed: Yes I reviewed the patient's radiology results. Chest X-Ray 06/11/16 15:40 IMPRESSION: No acute abnormality. D/ / Armando Sherman MD / Armando Sherman MD Interpreting Provider: Armando Sherman MD - EKG Data EKG attestation: Yes I reviewed and interpreted this EKG. EKG results narrative: EKG taken 06/11/2016 at 1537 hrs. shows a sinus rhythm at a rate of 67 beats see elevations or depressions EKG shows T-wave inversions in lead 3, aVF, EKG shows normal: sinus rhythm Rate: normal Rhythm: NSR [place]/QRS: normal Hyperacute T waves: v2, v3 When compared to previous EKG there are: changes noted Interpretation: nonspecific ST-T wave changes Heart Score - Score History: Highly Suspicious EKG: Normal Age: Less than 45 Risk Factors: 1-2 risk factors Troponin: Greater than 3x normal limit HEART Score Total: 5 Attestation Statement - Attestation Attestation: Patient was seen with resident physician. I reviewed the history, physical, assessment and plan, and agree with the findings. I also personally evaluated this patient and had [id number] time with this patient. 41-year-old female discharged from hospital 2 days ago for acute IN with stent placement. Patient states that she developed chest pain earlier today. She said the pain was initially in her arm but now became a pain it is a pressure sensation across her chest. She says it differs only from her cardiac heart attack pain in terms of location. His pain was more in the right side is more the left side. She said the sensation is similar. She does have nitroglycerin she does not take them at home. On examination ENT is unremarkable. Heart and lungs are normal. Abdomen is soft and nontender. Extremities are unremarkable. Workup revealed an elevated troponin which is to be expected considering that she had a recent IN. She has mild ST depression in the lateral leads on EKG. Will contact cardiology to determine disposition but likely is going to be admission with further workup and treatment. Patient was also given nitroglycerin and aspirin while in the emergency Department. Hemodynamically she remained stable. Did discuss with cardiology who suggested admission to the hospital. This was also been discussed with the hospitalist who agreed to accept the patient. One sublingual nitroglycerin was given to the patient which helped resolve her discomfort but not entirely she was hesitant to take any additional medications. Heparin was started and the patient was admitted to the hospital for serial enzymes and additional treatment is indicated. I Agree with resident physician assessment plan.
[2016-06-11 16:03] LABS: BUN/Creatinine Ratio 13 (6-26); Blood Urea Nitrogen 10 mg/dL (7-20); Carbon Dioxide 28 mEq/L (19-29); Chloride 103 mEq/L (98-109); Glucose 95 mg/dL (70-99); Osmolality,Calculated 287 (280-300); Potassium 3.9 mEq/L (3.5-4.5); Sodium 139 mEq/L (136-145); eGFR For African Americans > 60 (> 60); eGFR For Non-African Americans > 60 (> 60)
[2016-06-11] MEDS ORDERED: Heparin 25,000 UNIT/500 ML D5W 25,000 UNIT/500 ML MLS IVC SCH (18:30)
[2016-06-11] MEDS ORDERED: *HR* Heparin 5,000 UNIT/ML VIAL IVP PRN (18:33)
[2016-06-11] MEDS ORDERED: *HR* LORazepam 2 MG/ML VIAL IVP ONE (18:36)
--- NOTE | 2016-06-11 20:40 | Internal Med History&Physical ---
<Nazia Layton - Last Filed: 06/11/16 21:26> Date of Encounter: 06/11/16 Time of Encounter: 20:32 Assessment and Plan (1) Chest pain Current visit: Yes Status: Acute 1 patient has recent cardiac catheter on with drug-eluting stent placed M RCA. She has been on Brilinta and aspirin statin beta clifford states that she has been taking medications as prescribed. Presently experiencing chest pain similar to previous. Troponin is 7.88 which is down. We will continue to trend troponins 2 we will continue with heparin drip 3 nitroglycerin as needed for chest pain 4 oxygen needed to maintain SPO2 greater than 90% 5 cardiology consult in 6 continuous cardiac monitoring 7 continue with statin BB dual antiplatlets Qualifiers: Chest pain type: unspecified Qualified Code(s): R07.9 - Chest pain, unspecified (2) Smoker Current visit: No Status: Chronic 1 patient states she has not smoked since encouraged patient not to smoke 2 nicotine patch as needed (3) DVT prophylaxis Current visit: Yes Status: Acute 1 heparin drip Internal Medicine - H&P: HPI Chief complaint: cp Admitted From: Emergency Dept Plans for Post Hospital Care: Home History of present illness: Ms. Guerrero is a 41 year old female past history of non-STEMI 2 days ago, smoker. According to patient she presented on with chest pain radiating to her left arm she presented to the ER was noted that troponin was 10 cardiology was consulted patient was taken to [employer] [employer] she did have a 95% stenosis the m RCA with drug-eluting stent placed. Recovery was not eventful she was discharged home on Brilinta statin beta clifford. Patient states she has been compliant with medications she has not smoked since . Today patient did awake with left-sided heaviness pressure which radiated to left arm describing a 4 out of 10. She felt the chest pain was similar to her previous chest pain when she had her NSTEMI. She did not have any other associated symptoms. She became concerned and presented to the ER. ER records troponin was 7.88 the rest of her lab work was remarkable EKG sinus rhythm with no ST-T wave changes. Patient was given 2 nitros which did relieve her chest pain. ER physician did speak with cardiology who requested patient be initiated on heparin and would see patient in consult. Patient has been admitted for further workup and evaluation. Presently patient denies any chest pain or shortness of breath. Lung sounds are clear heart sounds S1-S2 with no rubs gallops clicks or murmurs noted she does have tenderness to palpation of left sided chest. she is hemodynamically stable this time I reviewed this case with Dr. Kerr who agrees with plan Past Med Surg Social Fam HX - Past Medical History Medical history: hyperlipidemia, hypertension, myocardial infarction Psychiatric history: anxiety, panic disorder - Past Surgical History Surgical History: , cholecystectomy - Social History Smoking Status: Current every day smoker Smokeless Tobacco Status: No Alcohol use: none Drug use: none - Family History Father Living Status: Age at : 49 Cause of : [place] Hx Family Cardiac Disorders: Yes (Heart disease) Internal Medicine - H&P: Meds Omeprazole Magnesium [Prilosec Otc] 20 mg PO DAILY 06/09/16 [History] Tacrolimus [Protopic] 1 appl TP 3XW 06/09/16 [History] Aspirin 81 mg PO DAILY #30 tab.chew 06/10/16 [Rx] Metoprolol [Lopressor] 12.5 mg PO BID #30 tablet 06/10/16 [Rx] Nitroglycerin 0.4 mg SL Q5-6MIN PRN #25 tab.subl 06/10/16 [Rx] Rosuvastatin [Crestor] 40 mg PO HS #30 tablet 06/10/16 [Rx] Ticagrelor [Brilinta] 90 mg PO BID #60 tablet 06/10/16 [Rx] Ibuprofen/Pseudoephedrine HCl [Advil Cold & Sinus Caplet] 1 tab PO QAM 06/11/16 [History] Allergies Sulfa (Sulfonamide Antibiotics) Allergy (Verified 06/09/16 17:19) Rash sulfamethoxazole [From Bactrim] Allergy (Verified 06/09/16 17:19) Rash trimethoprim [From Bactrim] Allergy (Verified 06/09/16 17:19) Rash bupropion [From Wellbutrin] Adverse Reaction (Verified 06/09/16 20:09) Palpitations formaldehyde Adverse Reaction (Verified 06/09/16 20:09) Unknown polyethylene glycol Adverse Reaction (Verified 06/09/16 20:09) Unknown All Systems PM: A 10-system review of systems was performed and is negative for pertinent findings except as documented above in the HPI. - Constitutional Constitutional: no chills, no fever(s), no night sweats - EENT Eyes: no change in vision, no discharge, no pain, no photophobia Nose, mouth and throat: no dysphagia, no nasal discharge, no neck pain, no sore throat - Cardiovascular Cardiovascular ROS IM: chest pain - Respiratory Respiratory: cough, no dyspnea, no wheezing, no excessive phlegm production - Gastrointestinal Gastrointestinal: no abdominal pain, no diarrhea, no hematemesis, no hematochezia, no melena, no nausea, no vomiting - Genitourinary Genitourinary: no change in urinary stream, no dysuria, no flank pain, no hematuria - Musculoskeletal Musculoskeletal ROS IM: no numbness, no tingling - Integumentary Integumentary IM: no rash, no unusual bruising - Neurological Neurological ROS: no confusion, no convulsions, no focal weakness, no numbness, no tingling, no tremor(s) - Hematologic/Lymphatic Hematologic/Lymphatic: no easy bruising - Constitutional Vitals: Temp Pulse Resp BP Pulse Ox 97.9 F 68 18 127/84 100 06/11/16 19:50 06/11/16 19:50 06/11/16 19:50 06/11/16 19:50 06/11/16 19:50 General appearance: Present: A&O X 3, answers questions appropriately - Head Head exam: Present: atraumatic, normocephalic - Eye Eye exam: Present: PERRL, conjuntiva pink, sclera anicteric Pupils: Present: PERRL - Neck Neck exam general surgery: Present: supple, trachea midline. Absent: lymphadenopathy - Respiratory Respiratory exam: Present: CTAB. Absent: accessory muscle use, rales, rhonchi, wheezes - Cardiovascular Cardiovascular exam: Present: RRR, +S1, +S2. Absent: diastolic murmur, gallop, rubs, systolic murmur - GI/Abdominal GI/Abdominal exam: Present: normal bowel sounds, soft, no peritoneal signs. Absent: distended, tenderness - Extremities Exam Extremities exam: Present: warm, radial pulses palpable and symetrical. Absent : calf tenderness, cyanotic, pedal edema - Neurological Exam Neurological exam: Present: CN II-XII intact, oriented X3, no focal deficits. Absent: pronater drift, facial droop, speech deficit - Skin Skin exam: Present: dry, intact Internal Med - H&P Results - Labs CBC & Chem 7: 06/11/16 15:42 06/11/16 15:42 - EKG Data EKG shows normal: sinus rhythm - EKG Data Prior EKG available for review: yes When compared to previous EKG: there is no significant change <Misha Dunlap - Last Filed: 06/12/16 03:35> Date of Encounter: 06/11/16 Internal Medicine - H&P: HPI History of present illness: Ms. Guerrero is a 41 year old female All Systems PM: A 10-system review of systems was performed and is negative for pertinent findings except as documented above in the HPI. - Constitutional Vitals: Temp Pulse Resp BP Pulse Ox 97.8 F 68 18 121/83 97 06/11/16 23:35 06/11/16 23:35 06/11/16 23:35 06/11/16 23:35 06/11/16 23:35 Internal Med - H&P Results - Labs CBC & Chem 7: 06/12/16 01:09 06/12/16 01:09 Labs: Short CBC 06/12/16 Range/Units 01:09 WBC 9.7 (4.3-11.1) K/mcL Hgb 11.9 D (11.5-15.4) g/dL Hct 35.2 L (35.3-44.9) % Plt Count 237 (140-400) K/mcL Neutrophils # 4.2 (1.6-8.9) K/mcL BMP 06/12/16 01:09 Sodium 138 Potassium 4.1 Chloride 108 Carbon Dioxide 23 BUN 11 Creatinine 0.78 Glucose 89 Calcium 8.8 Cardiac Enzymes 06/11/16 Range/Units 22:50 Troponin I 8.40 H* (0-0.03) ng/mL - Attending Attestation I performed history and physical examination of the patient and discussed management with the RECEPTION MANAGER / ANP. I reviewed the RECEPTION MANAGER / ANPs note and agree with documented findings and plan of care. 41 Y/F with family h/o premature CAD in her father, had chest pain and NSTEMI on 06/09/16. LHC showed 95% stenosis of the RCA s/p drug eluting stent placement. He reports taking all her medications as prescribed. Today she presents with left upper chest pain with radiation to the left arm, unrelated to exertion. Pain is not similar to her recent CP / NSTEMI. Pain was relieved with nitroglycerin. O/E: Not in acute distress at the time of my evaluation. Lungs clear to auscultation. Cardiac regular rate and rhythm. There is mild tenderness in the left infraclavicular area. EKG personally reviewed by me shows sinus rhythm, T-wave inversion in lead 3 and aVF. CXR reported no acute abnormality. Troponin was 7.88. A/P: Chest pain: Possible NSTEMI versus musculoskeletal pain. Patient had recent NSTEMI/stent placement. Continue with the aspirin, brillinta. Fish Bait Processing Supervisor recommended heparin infusion. Cardiac monitoring and trend troponins.
[2016-06-11] MEDS ORDERED: Acetaminophen 325 MG TABLET PO PRN (20:54)
[2016-06-11] MEDS ORDERED: Naloxone 0.4 MG/ML INJ IVP PRN (20:54)
--- NOTE | 2016-06-11 21:07 | Cardiology Consult Note ---
Date of Encounter: 06/11/16 Time of Encounter: 21:03 Assessment and Plan (1) Smoker Current Visit: No Status: Chronic 1 patient states she has not smoked since encouraged patient not to smoke 2 nicotine patch as needed (2) NSTEMI (non-ST elevated myocardial infarction) Current Visit: No Status: Acute (3) Chest pain Current Visit: No Status: Acute Sxs have resolved. Work up so far actually is reassuring. Doubt recurrent ACS/NSTEMI ? coroanry spasm or stent related stretch of the coronaries. Trend Trops Continue home meds. Continue Dual anti-platelet therapy Consider long acting Nitrate at D/c - possibly as soon as tomorrow. Qualifiers: Chest pain type: chest pain due to myocardial ischemia Ischemic chest pain type: unstable angina pectoris Qualified Code(s): I20.0 - Unstable angina Discussion w patient/family: The assessment and plan as outlined above was discussed with the patient and/or family members who expressed understanding and agreement. All questions were answered. Thank you for involving us in the care of your patient. Please call with any questions. History of Present Illness Consult date: 06/11/16 Consult reason: chest pain Chief complaint: same History of present illness: Ms. Guerrero is a 41 year old female s/p d/c yesterday - s/p recent ACS - with RCA stenting and minimal disease elsewhere present with recurent anterior chest pain starting earlier today. no clear trigger. no relief wth NTG. Ultimately she presented tot he ER and sxs resolved. Denies any pain while I am at bedside. Trop elevated - but lower than at recent d/c. She has been compliant with her meds - but did take accidently a double dose of BB. Past Med Surg Social Fam HX - Past Medical History Medical history: hyperlipidemia, hypertension, myocardial infarction Psychiatric history: anxiety, panic disorder - Past Surgical History Surgical History: , cholecystectomy - Social History Smoking Status: Current every day smoker Smokeless Tobacco Status: No Alcohol use: none Drug use: none - Family History Father Living Status: Age at : 49 Cause of : [place] Hx Family Cardiac Disorders: Yes (Heart disease) Medications and Allergies Omeprazole Magnesium [Prilosec Otc] 20 mg PO DAILY 06/09/16 [History] Tacrolimus [Protopic] 1 appl TP 3XW 06/09/16 [History] Aspirin 81 mg PO DAILY #30 tab.chew 06/10/16 [Rx] Metoprolol [Lopressor] 12.5 mg PO BID #30 tablet 06/10/16 [Rx] Nitroglycerin 0.4 mg SL Q5-6MIN PRN #25 tab.subl 06/10/16 [Rx] Rosuvastatin [Crestor] 40 mg PO HS #30 tablet 06/10/16 [Rx] Ticagrelor [Brilinta] 90 mg PO BID #60 tablet 06/10/16 [Rx] Ibuprofen/Pseudoephedrine HCl [Advil Cold & Sinus Caplet] 1 tab PO QAM 06/11/16 [History] Allergies Sulfa (Sulfonamide Antibiotics) Allergy (Verified 06/09/16 17:19) Rash sulfamethoxazole [From Bactrim] Allergy (Verified 06/09/16 17:19) Rash trimethoprim [From Bactrim] Allergy (Verified 06/09/16 17:19) Rash bupropion [From Wellbutrin] Adverse Reaction (Verified 06/09/16 20:09) Palpitations formaldehyde Adverse Reaction (Verified 06/09/16 20:09) Unknown polyethylene glycol Adverse Reaction (Verified 06/09/16 20:09) Unknown All Systems Review: A 10-system review of systems was performed and is negative for pertinent findings except as documented above in the HPI. - Cardiovascular Cardiovascular: chest pain at rest, lightheadedness Physical Examination Vital Signs, Last 4 Hours Temp Pulse Resp BP Pulse Ox 06/11/16 19:50 97.9 F 68 18 127/84 100 06/11/16 19:06 16 129/92 06/11/16 18:58 68 16 133/86 100 General: Conversant, No Apparent Distress HEENT: Atraumatic, Normocephaly Neck: No JVD, Normal carotid pulses Cardiac: Reg Rate and Rhythm, Normal S1 and S2 Lungs: Normal Breath Sounds, No Wheeze, Rales, Rhonchi Neuro: Alert and responsive, No focal deficits noted Abdomen: Soft, Non-Tender Skin: No rashes noted on visualized skin Musculoskeletal: No Chest Wall Tenderness Extremities: No Clubbing, No Cyanosis Results 06/11/16 15:42 06/11/16 15:42 - Imaging and Cardiology Cardiac cath: report reviewed - EKG Interpretation EKG results cardiology: personally reviewed, normal ECG, no diagnostic ischemia Consult Discharge Plan - Plan Referrals: Gene Rodriguez DO [Primary Care Provider] -
[2016-06-11] MEDS: *HR* Ticagrelor 90 MG TABLET PO SCH (21:35)
[2016-06-12 01:22] LABS: Basophils # 0.1 K/mcL (0.0-0.2); Basophils % 0.5 %; Eosinophils # 0.1 K/mcL (0.0-0.6); Eosinophils % 1.4 %; Hematocrit 35.2 % (35.3-44.9); Immature Granulocytes % 0.2 % (0-4); Lymphocytes # 4.6 K/mcL (0.6-4.6); Lymphocytes % 47.3 %; Mean Corpuscular HGB Conc 33.8 g/dL (31.6-35.5); Mean Corpuscular Hemoglobin 30.8 pg (28.0-33.3); Mean Corpuscular Volume 91.2 fL (83.0-100.0); Mean Platelet Volume 8.9 fL (9.4-12.4); Monocytes # 0.7 K/mcL (0.0-1.3); Neutrophils # 4.2 K/mcL (1.6-8.9); Platelet Count 237 K/mcL (140-400); Red Blood Count 3.86 M/mcL (3.82-4.97); Red Cell Distribution Width 13.4 % (11.5-14.5); Segmented Neutrophils % 43.6 %
[2016-06-12 01:25] LABS: Hemoglobin 11.9 g/dL (11.5-15.4)
[2016-06-12 01:39] LABS: BUN/Creatinine Ratio 14 (6-26); Blood Urea Nitrogen 11 mg/dL (7-20); Calcium 8.8 mg/dL (8.6-10.8); Carbon Dioxide 23 mEq/L (19-29); Chloride 108 mEq/L (98-109); Glucose 89 mg/dL (70-99); Osmolality,Calculated 285 (280-300); Potassium 4.1 mEq/L (3.5-4.5); Sodium 138 mEq/L (136-145); eGFR For African Americans > 60 (> 60); eGFR For Non-African Americans > 60 (> 60)
[2016-06-12] MEDS: *HR* Ticagrelor 90 MG TABLET PO SCH (08:54)
[2016-06-12] MEDS ORDERED: Aspirin 81 MG TAB.CHEW PO SCH (09:00)
--- NOTE | 2016-06-12 09:30 | Internal Med Progress Note ---
Date of Encounter: 06/12/16 Time of Encounter: 08:30 - Subjective Interval history: Pt seen/eval, she endorses events prompting hospitalization. 06/09 would have LHC with CLARA placed in mid RCA. Patient reports that at home she was at rest, noticed acute onset left-sided chest pressure, felt like a "band" across from left sternum radiating to left axilla. Nonpleuritic, no nausea, fatigue, or dyspnea. Accompanied by lightheadedness. Lasted for about 1 minute she would come to the ER and discomfort had resolved. Currently on heparin gtt. - Constitutional Vitals: Temp Pulse Resp BP Pulse Ox 97.8 F 74 16 125/76 97 06/12/16 08:15 06/12/16 08:15 06/12/16 08:15 06/12/16 08:15 06/12/16 08:15 General appearance: Present: A&O X 3, answers questions appropriately - Head Head exam: Present: atraumatic, normocephalic - Eye Eye exam: Present: EOMI, sclera anicteric - ENT ENT exam: Present: mucous membranes moist - Neck Neck exam general surgery: Present: supple, trachea midline - Respiratory Respiratory exam: Present: CTAB. Absent: rhonchi, wheezes - Cardiovascular Cardiovascular exam: Present: +S1, +S2. Absent: JVD - GI/Abdominal GI/Abdominal exam: Present: soft, no peritoneal signs. Absent: tenderness - Extremities Exam Extremities exam: Present: warm, radial pulses palpable and symetrical. Absent : pedal edema Internal Medicine: Result - Labs CBC & Chem 7: 06/12/16 01:09 06/12/16 01:09 Labs: Short CBC 06/12/16 Range/Units 01:09 WBC 9.7 (4.3-11.1) K/mcL Hgb 11.9 D (11.5-15.4) g/dL Hct 35.2 L (35.3-44.9) % Plt Count 237 (140-400) K/mcL Neutrophils # 4.2 (1.6-8.9) K/mcL BMP 06/12/16 01:09 Sodium 138 Potassium 4.1 Chloride 108 Carbon Dioxide 23 BUN 11 Creatinine 0.78 Glucose 89 Calcium 8.8 Cardiac Enzymes 06/11/16 06/12/16 Range/Units 22:50 03:39 Troponin I 8.40 H* 10.44 H* (0-0.03) ng/mL - ABG Interpretation ABG results: PT/INR, D-dimer PT 12.1 Seconds (9.4-12.1) 06/11/16 15:42 Consult Discharge Plan - Plan Referrals: Gene Rodriguez DO [Primary Care Provider] -
--- NOTE | 2016-06-12 09:57 | Pre-Sedation Evaluation ---
Pre-sedation evaluation - Pre-sedation checklist Date of procedure: 06/12/16 Procedure: [facility] Recent Vitals: Last Vital Signs Temp 97.8 F 06/12/16 08:15 Pulse 74 06/12/16 08:15 Resp 16 06/12/16 08:15 BP 125/76 06/12/16 08:15 Pulse Ox 97 06/12/16 08:15 H&P (including ROS) documented in medical record: Yes Previous reaction to sedatives/anesthetics: No Dietary Status: unknown Dentition: No loose teeth or bridges ASA Classification *see protocol: CLASS II-Mild systemic disease Plan of Care: Pt appropriate candidate for procedure/moderate/conscious sedation , Risks/benefits of procedure/sedation discussed w/ patient/family
--- NOTE | 2016-06-12 10:02 | Event Note ---
Date of Encounter: 06/12/16 Time of Encounter: 10:01 - Cardiology Event Note Patient with slight chest pain this AM, and a slight increase in Troponins since yesterday. Based on this repeat Angio reasonable to reassess. Further plan after the above. If negative possibly home later today.
[2016-06-12] MEDS ORDERED: Verapamil 5 MG/2 ML VIAL ONE (10:05)
[2016-06-12] MEDS ORDERED: 0.9 % Sodium Chloride 1,000 ML ONE ×2 (10:05→10:30)
[2016-06-12] MEDS ORDERED: *HR* Heparin 10,000 UNIT/10 ML VIAL ONE (10:06)
[2016-06-12] MEDS ORDERED: Nitroglycerin 1,000 MCG/10 ML VIAL IV ONE (10:06)
[2016-06-12] MEDS ORDERED: Heparin 1,000 UNITS/500 mL NS 500 ML ONE (10:06)
[2016-06-12] MEDS ORDERED: *HR* Midazolam HCl 5 MG/5 ML VIAL IVP ONE (10:29)
[2016-06-12] MEDS ORDERED: *HR* FentaNYL (PF) 100 MCG/2 ML VIAL ONE (10:29)
--- NOTE | 2016-06-12 11:28 | Invasive Diagnostic Lab Proc ---
Name: Sandra Guerrero Date of Study: 06/12/2016 Date: 1975 Ht: 66.1in Medical Record#: [id number] Age: 41 Wt: 199.08lb Gender: Female BSA: 2. Order #: [id number] BMI: 31.99 Physicians Procedure Physician: Kamaljit Montalvo [facility], [facility] Referring MD: Referring MD: Staff Name Position Time In Chichi Kumar RT (R) Scrub 10:46 AM Heydi Fuentes RN Ribbon Weaver 10:46 AM Summer Pina RN Monitor 10:46 AM Penny Aawd RN Ribbon Weaver 10:59 AM Indications Indication Non-Stemi Procedures Performed Procedure L HRT ARTERY/VENTRICLE ANGIO Pre-Procedure Checklist Informed consent is complete signed and on chart. H\\T\\P is on chart. ID band is on and ID verified with patient. Patient NPO for procedure The procedure was described for the patient and questions were answered. Blood Pressure: 118/67 ECG is on chart. Rhythm: NSR Plan of Care Patient will tolerate the procedure without complications. Adequate level of comfort will be maintained. Hemodynamics will remain stable Patient will recover from procedure without complications. Respiratory function will be maintained. Cardiac rhythm will remain stable. Patient temperature will be maintained. Patient and/or family have verbalized understanding of the procedure. Patient Education Intravenous Access Time IV Size Location DC'd Fluid/Drip Rate Units RN 18g 1 /" Patent On Arrival Rt Antecubital 0.9NaCl 25 ml/hr Heydi Fuentes RN Allergies polyethylene glycol SULFA (sulfonamide) trimethoprim Vital Signs Time BP (mmHg) HR (bpm) O2 Sat. RR (bpm) LOC 10:19 AM 125 / 76 74 97 % 16 5 = Fully awake and oriented or at pre-proc level 10:56 AM / % 5 = Fully awake and oriented or at pre-proc level 10:56 AM / % 5 = Fully awake and oriented or at pre-proc level 10:51 AM 120 / 81 67 99 % 18 10:56 AM 118 / 67 65 97 % 15 11:01 AM 103 / 71 67 94 % 14 11:06 AM 113 / 66 67 93 % 18 11:11 AM 110 / 72 66 92 % 14 Procedural Medications Time Medication Dose Units Method Given By 10:53 AM Versed 2 mg Intravenous Heydi Fuentes RN 10:53 AM Fentanyl 50 mcg Intravenous Heydi Fuentes RN 10:57 AM Versed 2 mg Intravenous Heydi Fuentes RN 11:02 AM Lidocaine 2% 17 ml Subcutaneous Kamaljit Montalvo MD, [facility] 11:04 AM Versed 1 mg Intravenous Heydi Fuentes RN 11:04 AM Fentanyl 25 mcg Intravenous Heydi Fuentes RN ASA Classification: CLASS II- Mild systemic disease (i.e. well-controlled diabetes, hypertension, asthma, cigarette smoking) Candido Score Preprocedure Postprocedure Activity 2- Moves 4 extremities sustained head lift Activity 2- Moves 4 extremities sustained head lift Circulation 2- SBP +/= 20 points of pre-anesthetic level Circulation 2- SBP +/= 20 points of pre-anesthetic level Consciousness 2- Awake and alert oriented x 3 Consciousness 2- Awake and alert oriented x 3 O2 Saturation 2- Able to maintain O2 satruation of 92% on room air O2 Saturation 2- Able to maintain O2 satruation of 92% on room air Respiratory 2- Able to deep breathe and cough well Respiratory 2- Able to deep breathe and cough well Total Score 10 Total Score 10 Contrast Agent: Isovue Diagnostic Contrast: 70 ml Total Contrast: 70 ml Fluoro Dose: 210 mGy Procedure Log Time Note Enter By 10:21 AM CathStat 10:46 AM Pt arrived to color laboratory technician 2 at 10:46 scoates 10:46 AM Chichi Kumar RT (R) Position: Scrub Time in: 10:46 scoates 10:46 AM Heydi Fuentes RN Position: Ribbon Weaver Time in: 10:46 scoates 10:46 AM Summer Pina RN Position: Monitor Time in: 10:46 scoates 10:46 AM Patient charges- Angio tray pack, Navilyst 3mm J, Pulse Oximetry and ACIST tubing and transducer scoates 10:46 AM Case Delayed No scoates 10:46 AM Physician arrived 10:46 scoates 10:46 AM Sj and jax completed scoates 10:46 AM Sign in performed according to hospital policy. scoates 10:46 AM Procedure start 10:46 scoates 10:50 AM Vitals capture started with the following parameters, Patient=Adult, Interval=5 min, Initial Gkjfxcxl=746 mmHg, Deflation Rate=5 mmHg, Cuff placed on Left Arm 10:51 AM HR=67 bpm, XJRB=506/81 mmhg, SpO2=99.0 %, Resp=18 B/min, Comment=SR 10:53 AM Time: 10:53 Versed 2 mg Intravenous Given by Heydi Fuentes RN scoates 10:53 AM Time: 10:53 Fentanyl 50 mcg Intravenous Given by Heydi Fuentes RN scoates 10:54 AM Recorded ECG: HR=66 Condition=Condition 1 10:55 AM Time: 10:55 Patient comfortable and pain free: Yes ejohnson 10:56 AM Time: 10:56LOC: 5 = Fully awake and oriented or at pre-proc level ejohnson 10:56 AM HR=65 bpm, PFOV=047/67 mmhg, SpO2=97.0 %, Resp=15 B/min, Comment=SR 10:57 AM Time: 10:57 Versed 2 mg Intravenous Given by Heydi Fuentes RN ejohnson 10:58 AM CathStat 10:58 AM Pressure channel 1 zero failed. 10:58 AM Pressure channel 1 zeroed. 11:00 AM Penny Awad RN Position: Ribbon Weaver Time in: 10:59 ejohnson 11:01 AM HR=67 bpm, MESP=732/71 mmhg, SpO2=94.0 %, Resp=14 B/min, Comment=SR 11:01 AM Time out performed according to hospital policy ejohnson 11:02 AM Time: 11:02 17 ml Lidocaine 2% to right groin Subcutaneous Given by Kamaljit Montalvo MD, [facility] ejohnson 11:03 AM Access obtained by percutaneous puncture. 5Fr 10cm Terumo [place] sheath placed in right Femoral artery. [id number] ejohnson 11:03 AM 5Fr FL 4 catheter inserted over the wire [facility] ejohnson 11:04 AM Recorded Pressure: Ao, HR=67, Condition=Condition 1 (Aorta) Ao 106/67/87 11:04 AM LCA angiography performed in multiple views. ejohnson 11:04 AM Time: 11:04 Versed 1 mg Intravenous Given by Heydi Fuentes RNohnselizabeth 11:04 AM Time: 11:04 Fentanyl 25 mcg Intravenous Given by Heydi Fuentes RNohnselizabeth 11:06 AM HR=67 bpm, WICX=244/66 mmhg, SpO2=93.0 %, Resp=18 B/min, Comment=SR 11:06 AM Catheter removed ejohnson 11:06 AM 5Fr FR 4 catheter inserted over the wire DN ejohnson 11:08 AM Recorded Pressure: Ao, HR=68, Condition=Condition 1 (Aorta) Ao 104/78/91 11:08 AM RCA angiography performed in multiple views. ejohnson 11:08 AM Catheter removed ejohnson 11:09 AM 5Fr Pigtail catheter inserted over the wire [facility] ejohnson 11:09 AM Catheter selectively placed in left ventricle ejohnson 11:09 AM Recorded Pressure: LV, HR=64, Condition=Condition 1 (Left Ventricle) LV 102/8/20 11:09 AM Bolus angiogram of left Ventricle complete: 8 ml/sec for a total of 30 mls ejohnson 11:10 AM Recorded Pressure: LV, Ao, HR=65, Condition=Condition 1 (Left Ventricle) LV 105/8/25, (Aorta) Ao 103/61/79 11:10 AM Catheter removed ejohnson 11:11 AM HR=66 bpm, KNCD=905/72 mmhg, SpO2=92.0 %, Resp=14 B/min, Comment=SR 11:11 AM Time: 10:56LOC: 5 = Fully awake and oriented or at pre-proc level ejohnson 11:11 AM Time: 10:55 Patient comfortable and pain free: Yes ejohnson 11:11 AM Bolus angiogram of right Ventricle complete: 4 ml/sec for a total of 7 mls ejohnson 11:12 AM Coronary Dominance: right ejohnson 11:12 AM Lesion found in Mid LAD. Pre Stenosis: 30 Pre SKYLA Flow: 3: Complete and Brisk Flow/Perfusion ejohnson 11:13 AM Lesion found in Proximal Circumflex. Pre Stenosis: 30 Pre SKYLA Flow: 3: Complete and Brisk Flow/Perfusion ejohnson 11:13 AM Mid/Distal Left Anterior Descending Coronary Artery and diagonal branches with 30% stenosis. ejohnson 11:13 AM Circumflex, Obtuse Marginal, Left Posterior Descending, and Left Posterolateral Coronary Arteries with 30 % stenosis. ejohnson 11:14 AM Procedure completed at 11:14 ejohnson 11:14 AM Sign out completed: Radiation Dose 210.35 mGy Fluoro Time: 1.7 Isovue 370 - 200ml contrast 70 ml given by [facility]aljit [facility] MD, [facility]. Complications: NoneCardiac Rehab Consult needed: YesConfirmed administered medications: Yes ejohnson 11:17 AM Arterial sheath pulled, Mynx closure device used and was Successful [id number] S/N. ejohnson 11:17 AM Post ECG NSR ejohnson 11:17 AM Post Blood Pressure 108/69 ejohnson 11:17 AM 11:17 Post Pulses Bilateral DP \\T\\ PT 2+ ejohnson 11:17 AM Information taught Cardiac Cath and Mynx ejohnson 11:19 AM Education needs Plan of Care and Responsibilities of Patient in Care ejohnson 11:19 AM Learning barriers :None ejohnson 11:19 AM Education Methods Verbal ejohnson 11:19 AM Education evaluation Able to repeat information ejohnson 11:19 AM Site status No bleeding/hematoma - Rt Groin as reported by Chichi Kumar RT (R) at 11:19 ejohnson 11:19 AM Opsite applied ejohnson 11:19 AM Plavix, Effient or Brilinta given Yes, on the unit ejohnson 11:19 AM Family placed in consult room. ejohnson 11:19 AM Complications: None ejohnson 11:22 AM Report given to Pollo AVILES Pt taken to E Room #17. 11:22 ejohnson Complications Complication None Hemodynamics Pressures Site Systolic/A Wave Diastolic/V Wave Mean AO 106 67 87 AO 104 78 91 LV 102 8 20 LV 105 8 25 AO 103 61 79 Post Procedure Information Blood Pressure: 108/69 mmHg Rhythm: NSR Post procedural instructions were given Closure Device Time Device Success/Fail 06/12/2016 11:16:00 AM Mechanical Compression Successful Site Checks Time Location Status Staff Sheath In? Note 11:19 AM Rt Groin No bleeding/hematoma Chichi Kumar RT (R) Pulses Time Site Pre-Procedure Post-Procedure Note Bilateral DP \\T\\ PT 2+ Bilateral radial 2+ 11:17:00 AM Bilateral DP \\T\\ PT 2+ Updated by Summer Pina RN on 06/12/2016 11:22:34 AM Summer Pina RN electronically signed on 06/12/2016 11:23:34 AM with status of Final
[2016-06-12 15:31] VITALS: BP 102/67
--- NOTE | 2016-06-12 18:48 | Discharge Summary ---
Date of Encounter: 06/12/16 Time of Encounter: 18:45 - Discharge Diagnosis (1) NSTEMI (non-ST elevated myocardial infarction) Priority: Primary Status: Acute (2) Smoker Priority: Secondary Status: Chronic - Discharge Medications Prescriptions: LORazepam [Ativan] 0.5 mg PO QID PRN #20 tablet PRN Reason: Anxiety Home Medications: Omeprazole Magnesium [Prilosec Otc] 20 mg PO DAILY 06/09/16 [History] Tacrolimus [Protopic] 1 appl TP 3XW 06/09/16 [History] Aspirin 81 mg PO DAILY #30 tab.chew 06/10/16 [Rx] Metoprolol [Lopressor] 12.5 mg PO BID #30 tablet 06/10/16 [Rx] Nitroglycerin 0.4 mg SL Q5-6MIN PRN #25 tab.subl 06/10/16 [Rx] Rosuvastatin [Crestor] 40 mg PO HS #30 tablet 06/10/16 [Rx] Ticagrelor [Brilinta] 90 mg PO BID #60 tablet 06/10/16 [Rx] LORazepam [Ativan] 0.5 mg PO QID PRN #20 tablet 06/12/16 [Rx] Allergies/Adverse Reactions: Allergies Sulfa (Sulfonamide Antibiotics) Allergy (Verified 06/09/16 17:19) Rash sulfamethoxazole [From Bactrim] Allergy (Verified 06/09/16 17:19) Rash trimethoprim [From Bactrim] Allergy (Verified 06/09/16 17:19) Rash bupropion [From Wellbutrin] Adverse Reaction (Verified 06/09/16 20:09) Palpitations formaldehyde Adverse Reaction (Verified 06/09/16 20:09) Unknown polyethylene glycol Adverse Reaction (Verified 06/09/16 20:09) Unknown Procedures/tests Complete & Pending: Procedures Performed prior 72 hours Category Date Time Status CL Cardiac Catheterization [CL] Routine Hearing Officer 06/12/16 09:56 Ordered Left Heart Cath [CL Cardiac Catheterization] [CL] Hearing Officer 06/12/16 09:56 Ordered Routine EKG [ECG 12 lead ECG] [ECG] Stat Y 06/11/16 23:39 Completed EKG [ECG 12 lead ECG] [ECG] Stat Y 06/12/16 04:29 Completed Date of admission: 06/11/16 18:27 Primary care physician: Amy Lewis Consults: 06/11/16 20:56 Consult to Cardiology [CONS] Routine Comment: Consulting Provider: Farideh Reid Reason for Consult: Chest pain-recent PCI stent placement Time Notified: 20:57 Call Completed: No 06/12/16 09:56 Consult to Cardiac Rehabilitation-Phase1 [CONS] Routine Comment: Reason for Consult: NSTEMI Call Completed: No Discharging clinician: Aroldo Brock Anticipated date of discharge: 06/12/16 - Patient Status Disposition: Home, Self-Care Condition: Good Functional capacity at discharge: independent ambulation Overall status at discharge: patient is progressing back to baseline - Discharge Instructions Follow Up With: Nadir Lovett CNP [Advanced Practice Nurse] - Gene Rodriguez DO [Primary Care Provider] - - Diet and Activity Activity: increase activity as tolerated Diet: low fat, low cholesterol, low salt diet Hospital course: Ms. Guerrero is a 41 year old female with recent NSTEMI and stent placement 2 days ago presented to ED with recurrent chest pain. She was evaluated and subsequently placed in the hospital. Ms. Guerrero was placed in observation on [facility]. She was seen by cardiology and due to increase in troponin she was taken to laboratory [facility]. Stent was open She returned to her room and had many questions about her symptoms. On 06/12/16 she was afebrile with stable vitals. At that time she was discharged home. She was given small amount of Ativan to take for anxiety and she has sublingual nitro at home. Time spent discussing smoking cessation with patient: 3 to 10 minutes - Time Spent with Patient Total time spent providing and/or coordinating discharge services: 39min - Constitutional Vitals: Temp Pulse Resp BP Pulse Ox 98.0 F 63 17 102/67 98 06/12/16 15:26 06/12/16 15:26 06/12/16 15:26 06/12/16 15:26 06/12/16 15:26 General appearance: Present: A&O X 3, pleasant, answers questions appropriately - Head Head exam: Present: normocephalic - Eye Eye exam: Present: conjuntiva pink - ENT ENT exam: Present: mucous membranes moist - Respiratory Respiratory exam: Present: CTAB. Absent: wheezes - Cardiovascular Cardiovascular exam: Present: RRR. Absent: tachycardia - Extremities Exam Extremities exam: Present: warm. Absent: pedal edema - Neurological Exam Neurological exam: Present: alert, oriented X3, no focal deficits - Psychiatric Psychiatric exam: Present: anxious - Skin Skin exam: Present: warm. Absent: rash
--- NOTE | 2016-06-12 20:30 | Electrocardiograph Report ---
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
--- NOTE | 2016-06-12 20:46 | Electrocardiograph Report ---
[address] [address] Test Date: 2016-06-11 Pat Name: Sandra Guerrero Department: 111 Room: 2NE17 Gender: F Principal Developer: HEMANT : 1975 Requested By: Gideon Saeed Order Number: [id number] Reading MD: Kamaljit Montalvo MD Measurements Intervals [place] Rate: 65 P: 3 NM: 163 QRS: -3 QRSD: 99 T: -24 QT: 395 QTc: 407 Interpretive Statements SINUS RHYTHM Electronically Signed On 06-12-2016 20:45:26 EDT by Kamaljit Montalvo MD
--- NOTE | 2016-06-12 20:47 | Electrocardiograph Report ---
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
--- NOTE | 2016-06-17 09:16 | Invasive Diagnostic Lab ---
Name: Sandra Guerrero Date of Study: 06/12/2016 Date: 1975 Ht: 168.0 cm /66.1 in Medical Record#: [id number] Age: 41 Wt: 90.3 kg / 199.08 lb Account/Order#: [id number] Gender: Female BSA: 2. Order #: [id number] Fluoro Dose: 210 mGy BMI: 31.99 Procedure Physician: Kamaljit Montalvo MD, FACC Referring MD: Referring MD: Procedures Performed: LEFT HEART CATH Iliofemoral angiography Indications: Non-Stemi Impressions: Mild atherosclerotic coronary artery disease. The left ventricle is normal and has normal contractility EF 60% Patent RCA stent Plan: Aggressive risk factor modification DAPT x 12 months Optimal medical therapy of patient's disease History/Risk Factors: Family History of CAD Previous PCI Date: 06/09/2016 Procedure Access obtained in the right Femoral artery by percutaneous puncture Complications: None Contrast: Isovue 70ml Hemodynamics: Pressures Site Systolic/ A Wave Diastolic/ V Wave End Diastolic/ Mean HR AO 106 67 87 67 AO 104 78 91 68 LV 102 8 20 64 LV 105 8 25 67 AO 103 61 79 63 LV Ventriculography Ejection Method: LV Gram Ejection Fraction: 60% Wall Motion: [place] Anterobasal Normal Anterolateral Normal Apical: Normal Inferoapical Normal Inferobasal Normal Coronary Dominance: right Lesion Findings/Interventions * Left Main Coronary Artery The LMCA is angiographically free of disease. * Left Anterior Descending The Left Anterior Descending tortuous. Proximal LAD - minimal disease There is a 30% stenosis in the Mid LAD. The lesion has a SKYLA flow of 3. * Circumflex The Circumflex tortuous. There is a 30% stenosis in the Proximal Circumflex. The lesion has a SKYLA flow of 3. * Right Coronary Artery The RCA has mild proximal disease with patent stent. The Right PDA is angiographically free of disease. Visualized portion of the right iliofemoral artery without significant disease and appropriate sheath placement in COOK CHILL TECHNICIAN for Mynx closure device. Updated by Summer Pina RN on 06/12/2016 11:18:07 AM Kamaljit Montalvo MD, FACC electronically signed on 06/17/2016 9:12:48 AM with status of Final
== END 2016-06-12 20:25 | disposition home or self-care (01) ==
LOC: EMEROO 15:26 → 2NENU 15:26
PROVIDERS: ADMIT Hospitalist; ATTEND Internal Medicine

== ENCOUNTER 2016-08-30 18:23 | Observation (INO) ==
--- NOTE | 2016-08-30 19:03 | Emergency Department Note ---
Disposition Clinical Impression: Chest pain Qualifiers: Chest pain type: unspecified Qualified Code(s): R07.9 - Chest pain, unspecified Disposition: Admitted As Inpatient Condition: Fair Time of Disposition: 21:14 Chest Pain HPI - General Chief Complaint: ED Chest Pain Stated Complaint: chest discomfort, low pulse Time Seen by Provider: 08/30/16 18:50 Source: patient Limitations: no limitations Vital Signs Reviewed: Yes Nursing Notes Reviewed: Yes - History of Present Illness HPI Narrative: 41-year-old female with history of HLD, smoking, RCA stent in May 2016, presents with chest pain at rest this started at 3 PM this evening, she states that the pain lasts for several hours it was initially 10 out of 10, now is a 3 out of 10. Patient states the pains in her mid substernal area radio into her left chest. This does feel like her previous IA. She also has a history of smoking, hyperlipidemia. Patient reported some shortness of breath and nausea, but denies diaphoresis, fever, chills, weight loss, hematuria dysuria hematochezia. Pt complaint: chest pain Duration: intermittent Onset: during exertion Pain Location: substernal, left chest Severity: moderate Severity scale (1-10): 3 Quality: aching Improves with: nothing Worsens with: inspiration Associated symptoms: Reports: nausea, dyspnea. Denies: vomiting, diaphoresis - Related Data Home Medications Medication Instructions Recorded Confirmed Omeprazole Magnesium [Prilosec Otc] 20 mg PO DAILY 06/09/16 08/30/16 Tacrolimus [Protopic] 1 appl TP 4XW 06/09/16 08/30/16 LORazepam [Ativan] 1 mg PO TID PRN 07/07/16 08/30/16 Aspirin Enteric Coated [Aspirin EC] 81 mg PO DAILY 08/30/16 08/30/16 Nitroglycerin 0.4 mg SL Q5M PRN 08/30/16 08/30/16 Previous Rx's Medication Instructions Recorded Rosuvastatin [Crestor] 40 mg PO HS #30 tablet 06/10/16 Ticagrelor [Brilinta] 90 mg PO BID #60 tablet 06/10/16 Allergies Allergy/AdvReac Type Severity Reaction Status Date / Time formaldehyde Allergy Rash Verified 07/07/16 10:46 polyethylene glycol Allergy Rash Verified 07/07/16 10:46 Sulfa (Sulfonamide Allergy Rash Verified 06/09/16 17:19 Antibiotics) sulfamethoxazole Allergy Rash Verified 06/09/16 17:19 [From Bactrim] trimethoprim [From Bactrim] Allergy Rash Verified 06/09/16 17:19 bupropion [From Wellbutrin] AdvReac Palpitation Verified 06/09/16 20:09 s All systems ED: reviewed and negative except as stated. Constitutional: Denies: fever, chills Cardiovascular: Reports: as per HPI, chest pain, dyspnea on exertion Respiratory: Denies: cough, dyspnea Gastrointestinal: Denies: abdominal pain, nausea Genitourinary: Denies: urgency Musculoskeletal: Denies: back pain, neck pain Neurological: Denies: headache, weakness Psychiatric: Denies: anxiety, depression Endocrine: Denies: fatigue Chest Pain PMH - Past Medical History Medical history: Reports: arthritis, coronary artery disease, GERD, hyperlipidemia, hypertension, myocardial infarction, other Surgical history: Reports: , cholecystectomy Psychiatric history: Reports: anxiety, panic disorder [employer]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 - Social History Smoking Status: Current every day smoker Alcohol use: Reports: none Drug use: Reports: none Physical Exam Constitutional: alert and oriented, in NAD, vital signs reviewed and wnl Neck: normal inspection, neck is supple, no JVD Resp: normal chest inspection, CTA bilaterally, no resp distress, no wheezes/ rales/rhonchi CV: RRR, no murmurs/gallops/rubs, S1 and S2 heard Extremity: +2 bilateral radial and posterial tibial pulses, no pedal edema GI: normal inspection, Soft, NTND, no peritoneal signs, no palpable abdominal aortic aneurysm Back: normal inspection, no tenderness to palpation Neuro: A&O3, no gross motor or sensory deficits bilaterally MSK: normal inspection, bilateral UE and LE with normal ROM Skin: No rashes, skin warm, dry, intact - General Limitations: no limitations General appearance: alert Course Course Narrative: 41-year-old female with known vessel disease, presents with shortness breath and chest pain, patient's pain is somewhat better now, and she thinks maybe she was just having an anxiety attack but she was having fairly severe chest pain, improved, she does take aspirin and Brillenta and took those today, she will get a chest pain workup, chest pain x-ray, EKG, basic lab work reassess. HEART Score of 4. - Reevaluation(s) Reevaluation #1: Patient is chest pain pain-free, her troponin was 0.00, given how recently her symptoms started, and her risk factors, no EKG changes, we will admit for chest pain rule out Time: 21:16 Vital Signs Temperature 97.9 F 08/30/16 18:28 Pulse Rate 78 08/30/16 18:28 Respiratory Rate 20 08/30/16 18:28 Blood Pressure 153/76 08/30/16 18:28 O2 Sat by Pulse Oximetry 100 08/30/16 18:28 Temperature 97.9 F 08/30/16 18:28 Pulse Rate 74 08/30/16 20:30 Respiratory Rate 16 08/30/16 22:19 Blood Pressure 123/65 08/30/16 22:19 O2 Sat by Pulse Oximetry 99 08/30/16 20:30 Oxygen Delivery Oxygen Delivery Room Air Chest Pain - MDM Narrative Medical decision making narrative: 41-year-old female with chest pain at rest, now resolved, troponin negative EKG negative, admitted for chest pain rule out to Dr. Shah - Differential Diagnosis Likely: atypical chest pain, chest pain - Medical Records Medical records reviewed: Yes I reviewed the patient's medical records. - Lab Data Lab results reviewed: Yes I reviewed the patient's lab results. Result diagrams: 08/30/16 19:40 08/30/16 19:40 Lab Results 08/30/16 08/30/16 08/30/16 Range/Units 19:40 19:40 19:40 WBC 9.2 (4.3-11.1) K/mcL RBC 4.45 (3.82-4.97) M/mcL Hgb 13.3 (11.5-15.4) g/dL Hct 40.0 (35.3-44.9) % MCV 89.9 (83.0-100.0) fL MCH 29.9 (28.0-33.3) pg MCHC 33.3 (31.6-35.5) g/dL RDW 13.1 (11.5-14.5) % Plt Count 274 (140-400) K/mcL MPV 8.8 L (9.4-12.4) fL Immature Gran % 0.2 (0-4) % Seg Neutrophils % 59.7 % Lymphocytes % 32.4 % Monocytes % 6.0 % Eosinophils % 1.4 % Basophils % 0.3 % Neutrophils # 5.5 (1.6-8.9) K/mcL Lymphocytes # 3.0 (0.6-4.6) K/mcL Monocytes # 0.6 (0.0-1.3) K/mcL Eosinophils # 0.1 (0.0-0.6) K/mcL Basophils # 0.0 (0.0-0.2) K/mcL PT 12.8 H (9.4-12.1) Seconds INR 1.2 APTT 37.0 H (26.0-36.0) Seconds Sodium 137 (136-145) mEq/L Potassium 3.6 (3.5-4.5) mEq/L Chloride 104 (98-109) mEq/L Carbon Dioxide 26 (19-29) mEq/L BUN 11 (7-20) mg/dL Creatinine 0.82 (0.57-1.11) mg/dL Est GFR ( Amer) > 60 (> 60) Est GFR (Non-Af Amer) > 60 (> 60) BUN/Creatinine Ratio 13 (6-26) Glucose 109 H (70-99) mg/dL Calculated Osmolality 284 (280-300) Calcium 9.6 (8.6-10.8) mg/dL Total Bilirubin 0.3 (0.2-1.2) mg/dL AST 15 (5-34) Units/L ALT 13 (0-55) Units/L Alkaline Phosphatase 76 (38-126) Units/L Troponin I (0-0.03) ng/mL Serum Total Protein 6.9 (6.0-8.3) g/dL Albumin 3.5 (3.5-5.0) g/dL Globulin 3.4 (2.4-3.5) g/dL Albumin/Globulin Ratio 1.0 L (1.1-2.2) 08/30/16 Range/Units 19:40 WBC (4.3-11.1) K/mcL RBC (3.82-4.97) M/mcL Hgb (11.5-15.4) g/dL Hct (35.3-44.9) % MCV (83.0-100.0) fL MCH (28.0-33.3) pg MCHC (31.6-35.5) g/dL RDW (11.5-14.5) % Plt Count (140-400) K/mcL MPV (9.4-12.4) fL Immature Gran % (0-4) % Seg Neutrophils % % Lymphocytes % % Monocytes % % Eosinophils % % Basophils % % Neutrophils # (1.6-8.9) K/mcL Lymphocytes # (0.6-4.6) K/mcL Monocytes # (0.0-1.3) K/mcL Eosinophils # (0.0-0.6) K/mcL Basophils # (0.0-0.2) K/mcL PT (9.4-12.1) Seconds INR APTT (26.0-36.0) Seconds Sodium (136-145) mEq/L Potassium (3.5-4.5) mEq/L Chloride (98-109) mEq/L Carbon Dioxide (19-29) mEq/L BUN (7-20) mg/dL Creatinine (0.57-1.11) mg/dL Est GFR ( Amer) (> 60) Est GFR (Non-Af Amer) (> 60) BUN/Creatinine Ratio (6-26) Glucose (70-99) mg/dL Calculated Osmolality (280-300) Calcium (8.6-10.8) mg/dL Total Bilirubin (0.2-1.2) mg/dL AST (5-34) Units/L ALT (0-55) Units/L Alkaline Phosphatase (38-126) Units/L Troponin I 0.00 (0-0.03) ng/mL Serum Total Protein (6.0-8.3) g/dL Albumin (3.5-5.0) g/dL Globulin (2.4-3.5) g/dL Albumin/Globulin Ratio (1.1-2.2) - Radiology Data Radiology results reviewed: Yes I reviewed the patient's radiology results. - EKG Data EKG attestation: Yes I reviewed and interpreted this EKG. EKG shows normal: sinus rhythm Rate: normal (A 7 bpm GA 136 QRS [address] segment elevations or depressions, frequent PVCs. Inverted T waves on lead 3) Rhythm: PVC's Heart Score - Score History: Moderately Suspicious EKG: Non Specific repolarisation Disturbance Age: Less than 45 Risk Factors: Equal/Greater than 3 risk factor or history of atherosclerotic disease Troponin: Less than normal limit HEART Score Total: 4 Attestation Statement - Attestation Attestation: I examined this patient and my medical decision-making was reviewed with the Resident Physician. I agree with the documented findings, disposition and treatment plan as described except to the extent set forth below. History quite concerning for cardiac ischemia. Replicates her prior ischemic episodes, description of pain is consistent with an ischemic etiology. Currently pain free. First troponin negative. EKG abnormal but nonspecific in stable compared to prior tracings. Had long conversation with the patient, who is frustrated and tearful, but willing to stay in the hospital. seems relieved that she will be staying. Patient remains stable at time of disposition.
[2016-08-30] MEDS ORDERED: Aspirin 81 MG TAB.CHEW PO ONE (19:19)
[2016-08-30 19:53] LABS: Basophils % 0.3 %; Eosinophils # 0.1 K/mcL (0.0-0.6); Eosinophils % 1.4 %; Hemoglobin 13.3 g/dL (11.5-15.4); Immature Granulocytes % 0.2 % (0-4); Lymphocytes % 32.4 %; Mean Corpuscular HGB Conc 33.3 g/dL (31.6-35.5); Mean Corpuscular Hemoglobin 29.9 pg (28.0-33.3); Mean Corpuscular Volume 89.9 fL (83.0-100.0); Mean Platelet Volume 8.8 fL (9.4-12.4); Monocytes # 0.6 K/mcL (0.0-1.3); Neutrophils # 5.5 K/mcL (1.6-8.9); Platelet Count 274 K/mcL (140-400); Red Blood Count 4.45 M/mcL (3.82-4.97); Red Cell Distribution Width 13.1 % (11.5-14.5); Segmented Neutrophils % 59.7 %
[2016-08-30 20:01] LABS: INR 1.2; Prothrombin Time 12.8 Seconds (9.4-12.1)
[2016-08-30 20:11] LABS: Alanine Aminotransferase 13 Units/L (0-55); Albumin 3.5 g/dL (3.5-5.0); Alkaline Phosphatase 76 Units/L (38-126); Aspartate Amino Transferase 15 Units/L (5-34); BUN/Creatinine Ratio 13 (6-26); Bilirubin,Total 0.3 mg/dL (0.2-1.2); Blood Urea Nitrogen 11 mg/dL (7-20); Calcium 9.6 mg/dL (8.6-10.8); Carbon Dioxide 26 mEq/L (19-29); Chloride 104 mEq/L (98-109); Globulin 3.4 g/dL (2.4-3.5); Glucose 109 mg/dL (70-99); Osmolality,Calculated 284 (280-300); Potassium 3.6 mEq/L (3.5-4.5); Sodium 137 mEq/L (136-145); Total Protein 6.9 g/dL (6.0-8.3); eGFR For African Americans > 60 (> 60); eGFR For Non-African Americans > 60 (> 60)
[2016-08-31] MEDS ORDERED: *HR* LORazepam 1 MG TABLET PO ONE (03:14)
[2016-08-31] MEDS ORDERED: Naloxone 0.4 MG/ML INJ IVP PRN (03:45)
[2016-08-31] MEDS ORDERED: Acetaminophen 325 MG TABLET PO PRN (03:45)
[2016-08-31] MEDS ORDERED: *HR* Morphine 2 MG/ML SYRINGE IVP PRN (03:45)
[2016-08-31] MEDS ORDERED: Ondansetron 4 MG/2 ML VIAL IVP PRN (03:45)
[2016-08-31] MEDS ORDERED: *HR* LORazepam 0.5 MG TABLET PO PRN (03:48)
[2016-08-31] MEDS ORDERED: Nitroglycerin 0.4 MG TAB.SUBL SL PRN (03:48)
--- NOTE | 2016-08-31 04:33 | Internal Med History&Physical ---
Date of Encounter: 08/31/16 Time of Encounter: 03:20 Assessment and Plan (1) Chest pain Current visit: No Status: Acute 1. Patient believes her symptoms were due to anxiety. Nonetheless, given her h /o CAD, recent NE, palpitations, and bradycardia noted at home, further work-up is indicated. 2. Will cycle troponins and order stress test later today. 3. Will consult Cardiology for further guidance and the possibility of Left Heart Catheterization. 4. Continue home medications. Qualifiers: Chest pain type: precordial pain Qualified Code(s): R07.2 - Precordial pain (2) CAD (coronary artery disease), [place] coronary artery Current visit: Yes Status: Chronic 1. S/P PCI/stent in May this year. 2. Continue home meds. 3. No BB/AV [place] suppressive agents due to bradycardia. 4. Cardiology consult and stress test as above as above. Qualifiers: [place] vs. transplanted heart: [place] heart Associated angina: with stable angina Qualified Code(s): I25.118 - Atherosclerotic heart disease of [place] coronary artery with other forms of angina pectoris (3) Anxiety Current visit: Yes Status: Chronic 1. Continue home medications as prescribed. 2. Anxiety may be due to and provoked by angina. Will rule out cardiac cause first before attributing it to anxiety. 3. May benefit from SSRI upon discharge. (4) Bradycardia Current visit: Yes Status: Acute 1. Likely due to RCA disease. 2. Will cycle troponins and proceed with work-up as above. 3. Monitor/correct electrolytes as appropriate. 4. Avoid BB and AV edwina suppressive agents. (5) DVT prophylaxis Current visit: Yes Status: Acute 1. Heparin SQ. Internal Medicine - H&P: HPI Chief complaint: chest pain; palpitations Admitted From: Emergency Dept Plans for Post Hospital Care: Home History of present illness: Ms. Guerrero is a 41 year old female who presented to the ER tonight after having developed some chest tightness, palpitations, and worsening anxiety. She initially attributed her symptoms to anxiety and not cardiac issues. However, symptoms persisted and worsened as the day went along. She subsequently became more anxious and noticed more frequent palpitations. She also noticed some bradycardia with heart rates in the 40s to 50s. This prompted her to come to the ER. Workup in the ER was negative, but she was admitted to hospitalist service nonetheless. She did not receive any nitroglycerin and/or morphine as her chest pain had essentially resolved at that point. Upon my assessment of the patient, she is chest pain-free now. However, she does confirm the above history. She does not take any beta blockers and/or AV edwina suppressive agents. She states that her heart rate normally runs in the 70s and when she developed her bradycardia today, it made her very anxious and nervous. She recently had an NE in May of this year and underwent PCI with stent placement of her right coronary artery. She was intolerant of beta blockers due to profound bradycardia. She has been taking her medications as prescribed and has not missed any of her antiplatelet therapy. She is a smoker , but she is cutting her smoking significantly. She was smoking roughly 30 cigarettes per day prior to her NE, and she is now down to about 5 cigarettes per day. She is trying to quit smoking altogether. Past Med Surg Social Fam HX - Past Medical History Attestation: Yes The following information was validated with the patient. Source: patient, old records reviewed Medical history: arthritis, coronary artery disease, GERD, hyperlipidemia, hypertension, myocardial infarction Psychiatric history: anxiety, panic disorder - Past Surgical History Surgical History: angioplasty/stent, , cholecystectomy - Social History Smoking Status: Current every day smoker Packs per day: 02/23 Smokeless Tobacco Status: No Alcohol use: none Drug use: none Current living situation: Home, With Family Activity Level: Independent ambulation Recent Out of Country Travel Within the Last 8 Weeks: No - Family History Father Adopted: No Family Member Ethnicity: Non- Living Status: Hx Family Cardiac Disorders: Yes (NE,HTN,High cholesterol) Hx Family Respiratory Disorders: No Hx Family Cancer: No Hx Family GI Disorders: Yes (acid reflux) Hx Family Endocrine Disorder: No Hx Family Neuromuscular Disorders: No Hx Family Neurologic Disorders: No Hx Family HEENT Disorders: No Hx Family Autoimmune Disorders: (Agent orange) Internal Medicine - H&P: Meds Omeprazole Magnesium [Prilosec Otc] 20 mg PO DAILY 06/09/16 [History] Tacrolimus [Protopic] 1 appl TP 4XW 06/09/16 [History] Rosuvastatin [Crestor] 40 mg PO HS #30 tablet 06/10/16 [Rx] Ticagrelor [Brilinta] 90 mg PO BID #60 tablet 06/10/16 [Rx] LORazepam [Ativan] 1 mg PO TID PRN 07/07/16 [History] Aspirin Enteric Coated [Aspirin EC] 81 mg PO DAILY 08/30/16 [History] Nitroglycerin 0.4 mg SL Q5M PRN 08/30/16 [History] Allergies formaldehyde Allergy (Verified 07/07/16 10:46) Rash polyethylene glycol Allergy (Verified 07/07/16 10:46) Rash Sulfa (Sulfonamide Antibiotics) Allergy (Verified 06/09/16 17:19) Rash sulfamethoxazole [From Bactrim] Allergy (Verified 06/09/16 17:19) Rash trimethoprim [From Bactrim] Allergy (Verified 06/09/16 17:19) Rash bupropion [From Wellbutrin] Adverse Reaction (Verified 06/09/16 20:09) Palpitations - Constitutional Constitutional: no chills, no fever(s), no night sweats - EENT Eyes: no blurry vision, no change in vision Ears: no ear pain, no tinnitus Nose, mouth and throat: no sinus pain, no sore throat - Cardiovascular Cardiovascular ROS IM: chest pain, dyspnea, palpitations, no diaphoresis, no lightheadedness, no syncope - Respiratory Respiratory: no cough, no hemoptysis, no chest congestion, no excessive phlegm production - Gastrointestinal Gastrointestinal: no abdominal pain, no diarrhea, no hematemesis, no hematochezia, no melena, no vomiting - Genitourinary Genitourinary: no dysuria, no flank pain, no hematuria - Musculoskeletal Musculoskeletal ROS IM: no arthralgias, no back pain - Integumentary Integumentary IM: no rash, no jaundice - Neurological Neurological ROS: no dizziness, no focal weakness, no frequent falls, no headache(s) - Psychiatric Psychiatric: anxiety, no depression - Endocrine Endocrine IM: no cold intolerance, no heat intolerance - Hematologic/Lymphatic Hematologic/Lymphatic: no easy bruising, no lymphadenopathy - Allergic/Immunologic Allergic/Immunologic: no wheezing, no GI upset with certain foods - Constitutional Vitals: Temp Pulse Resp BP Pulse Ox 98.1 F 70 16 109/70 97 08/31/16 02:53 08/31/16 02:53 08/31/16 02:53 08/31/16 02:53 08/31/16 02:53 General appearance: Present: cooperative, A&O X 3, pleasant, no acute distress, answers questions appropriately - Head Head exam: Present: normal inspection - Eye Eye exam: Present: EOMI, normal appearance, PERRL. Absent: scleral icterus Pupils: Present: normal accommodation - ENT ENT exam: Present: mucous membranes moist, normal exam - Neck Neck exam general surgery: Present: full ROM, normal inspection, supple. Absent : lymphadenopathy, tenderness - Expanded Neck Exam Neck exam: Absent: carotid bruit - Respiratory Respiratory exam: Present: CTAB. Absent: chest wall tenderness, rales, rhonchi , wheezes - Cardiovascular Cardiovascular exam: Present: RRR, +S1, +S2. Absent: diastolic murmur, JVD, systolic murmur Additional comments: occasional ectopic beat noted - GI/Abdominal GI/Abdominal exam: Present: normal bowel sounds, soft. Absent: hepatomegaly, mass, splenomegaly, tenderness - Extremities Exam Extremities exam: Present: full ROM, warm. Absent: calf tenderness, joint swelling, pedal edema - Back Exam Back exam: Present: normal inspection. Absent: CVA tenderness (L), CVA tenderness (R) - Neurological Exam Neurological exam: Present: alert, CN II-XII intact, oriented X3, no focal deficits - Psychiatric Psychiatric exam: Present: anxious. Absent: depressed - Skin Skin exam: Present: dry, warm. Absent: rash Internal Med - H&P Results - Labs CBC & Chem 7: 08/30/16 19:40 08/30/16 19:40 - EKG Data -: EKG Interpreted by Myself - EKG Data Prior EKG available for review: yes When compared to previous EKG: there are significant changes EKG comments: 08/31/16 04:37 Sinus rhythm with frequent PVC's; no acute ST-T changes - Diagnostic Studies Chest x-ray Status: image reviewed by me (negative)
[2016-08-31 05:26] LABS: Basophils % 0.4 %; Eosinophils # 0.2 K/mcL (0.0-0.6); Eosinophils % 1.9 %; Hemoglobin 13.5 g/dL (11.5-15.4); Immature Granulocytes % 0.2 % (0-4); Lymphocytes % 43.8 %; Mean Corpuscular HGB Conc 34.6 g/dL (31.6-35.5); Mean Corpuscular Hemoglobin 31.3 pg (28.0-33.3); Mean Corpuscular Volume 90.3 fL (83.0-100.0); Mean Platelet Volume 9.3 fL (9.4-12.4); Monocytes # 0.6 K/mcL (0.0-1.3); Monocytes % 6.6 %; Neutrophils # 4.3 K/mcL (1.6-8.9); Platelet Count 257 K/mcL (140-400); Red Blood Count 4.32 M/mcL (3.82-4.97); Red Cell Distribution Width 13.2 % (11.5-14.5); Segmented Neutrophils % 47.1 %
[2016-08-31 05:39] LABS: BUN/Creatinine Ratio 14 (6-26); Blood Urea Nitrogen 11 mg/dL (7-20); Calcium 9.1 mg/dL (8.6-10.8); Carbon Dioxide 24 mEq/L (19-29); Chloride 108 mEq/L (98-109); Chol/HDL Ratio 3.1 (0-4.9); Cholesterol 90 mg/dL (< 200); Glucose 112 mg/dL (70-99); HDL Cholesterol 29 mg/dL (40-59); LDL Cholesterol,Calculated 41 mg/dL (0-99); Magnesium 1.7 mg/dL (1.6-2.6); Osmolality,Calculated 286 (280-300); Potassium 3.7 mEq/L (3.5-4.5); Sodium 138 mEq/L (136-145); Triglycerides 98 mg/dL (< 150); eGFR For African Americans > 60 (> 60); eGFR For Non-African Americans > 60 (> 60)
[2016-08-31] MEDS ORDERED: *HR* Heparin 5,000 UNIT/ML VIAL SQ SCH (06:00)
[2016-08-31] MEDS: *HR* Ticagrelor 90 MG TABLET PO SCH ×2 (06:22→10:04)
[2016-08-31] MEDS ORDERED: [UNRECOGNIZED DRUG - OTHER] TP SCH (09:00)
[2016-08-31] MEDS ORDERED: Aspirin Enteric Coated 81 MG Tablet PO SCH (09:00)
--- NOTE | 2016-08-31 09:05 | Cardiology Consult Note ---
Date of Encounter: 08/31/16 Time of Encounter: 09:02 Assessment and Plan (1) Chest pain Current Visit: No Status: Acute Atypical, described as midsternal chest burning in setting of anxiety and palpitations, mild radiation down left arm. Pain was worse at rest, improved with standing/exertion, now resolved. Troponin negative x 2. Pt had two LHCs 06/09/2016 for NSTEMI, found to have severe 1 vessel CAD and received CLARA to mRCA. She then had a repeat LHC due to chest pain on 06/12/16 that showed mild CAD, EF 60%, patent RCA stent. No EKG changes. Stress test was ordered by primary team, cancelled per cardiology given her recent negative repeat LHC and atypical symptoms. Echo 05/2016 EF 60-65%. No further cardiac testing warranted. Anticipate sign off once seen and evaluated by Dr. Montalvo. Follow-up as outpt. Qualifiers: Chest pain type: unspecified Qualified Code(s): R07.9 - Chest pain, unspecified (2) PVCs (premature ventricular contractions) Current Visit: Yes Status: Chronic Known hx of PVCs. Holter 06/2016 showed frequent PVCs. Pt reports palpitations, states she felt worse when she was on Metoprolol and it made her feel very fatigued. BP 90/64 in stress lab, so no other medications to suppress PVCs can be added at this time. Pt reports hypotension is secondary to Ambien she received around 4AM. (3) CAD (coronary artery disease), [place] coronary artery Current Visit: Yes Status: Chronic Hx of PCI. C 06/09/2016 severe 1 vessel disease, successful PTCA/CLARA to mRCA. Repeat LHC 06/12/16 showed mild CAD and patent RCA stent. Continue ASA, Brilinta, Statin. Intolerant to BB. Pt reports compliance with DAPT. Recommend DAPT (ASA and Brilinta) x 1 year s/p PCI. Qualifiers: [place] vs. transplanted heart: [place] heart Associated angina: with stable angina Qualified Code(s): I25.118 - Atherosclerotic heart disease of [place] coronary artery with other forms of angina pectoris (4) Bradycardia Current Visit: Yes Status: Acute Reported HR of 48 and 57 at home, states she noticed she was lightheaded when she had palpitations. Recent Holter 06/2016 showed AVG HR 73, minimum 57, no pauses, frequent PVCs. Telemetry reviewed. AVG HR 74 with no pauses or bradycardia noted. Explained to pt that her home monitor may have miscalculated her HR due to PVCs. Discussion w patient/family: The assessment and plan as outlined above was discussed with the patient and/or family members who expressed understanding and agreement. All questions were answered. Thank you for involving us in the care of your patient. Please call with any questions. I will discuss all the above with Dr. Montalvo and make changes as necessary. History of Present Illness Consult date: 08/31/16 Requesting physician: Raymundo Shah Consult reason: chest pain, bradycardia Chief complaint: chest pain, palpitations History of present illness: Ms. Guerrero is a 41 year old female with PMH of CAD with hx of PCI to RCA 05/2016 , PVCs, palpitations that presented to the ER yesterday after having developed some chest tightness, palpitations, and worsening anxiety. She initially attributed her symptoms to anxiety. However, symptoms persisted and worsened as the day went along. She subsequently became more anxious and noticed more frequent palpitations. She also noticed some bradycardia with heart rates in the 40s to 50s on her home monitor. This prompted her to come to the ER. Troponins have been negative. She states the midsternal chest burning was worse at rest and improved with exertion. Cardiology consulted for further recommendations. Recent CV testing: Holter 07/07/16: AVG HR 73, lowest HR 57, frequent PVCs. LHC 06/12/16: Mild CAD, EF 60%, patent RCA stent. LHC 06/09/16: Severe 1 vessel CAD, successful PTCA/CLARA to mRCA. Echo 06/10/16: EF 60-65%. Past Med Surg Social Fam HX - Past Medical History Medical history: arthritis, coronary artery disease, GERD, hyperlipidemia, hypertension, myocardial infarction Psychiatric history: anxiety, panic disorder - Past Surgical History Surgical History: angioplasty/stent, , cholecystectomy - Social History Smoking Status: Current every day smoker Packs per day: 02/23 Smokeless Tobacco Status: No Alcohol use: none Drug use: none - Family History Father Adopted: No Family Member Ethnicity: Non- Living Status: Hx Family Cardiac Disorders: Yes (IN,HTN,High cholesterol) Hx Family Respiratory Disorders: No Hx Family Cancer: No Hx Family GI Disorders: Yes (acid reflux) Hx Family Endocrine Disorder: No Hx Family Neuromuscular Disorders: No Hx Family Neurologic Disorders: No Hx Family HEENT Disorders: No Hx Family Autoimmune Disorders: (Agent orange) Medications and Allergies Omeprazole Magnesium [Prilosec Otc] 20 mg PO DAILY 06/09/16 [History] Tacrolimus [Protopic] 1 appl TP 4XW 06/09/16 [History] Rosuvastatin [Crestor] 40 mg PO HS #30 tablet 06/10/16 [Rx] Ticagrelor [Brilinta] 90 mg PO BID #60 tablet 06/10/16 [Rx] LORazepam [Ativan] 1 mg PO TID PRN 07/07/16 [History] Aspirin Enteric Coated [Aspirin EC] 81 mg PO DAILY 08/30/16 [History] Nitroglycerin 0.4 mg SL Q5M PRN 08/30/16 [History] Allergies formaldehyde Allergy (Verified 07/07/16 10:46) Rash polyethylene glycol Allergy (Verified 07/07/16 10:46) Rash Sulfa (Sulfonamide Antibiotics) Allergy (Verified 06/09/16 17:19) Rash sulfamethoxazole [From Bactrim] Allergy (Verified 06/09/16 17:19) Rash trimethoprim [From Bactrim] Allergy (Verified 06/09/16 17:19) Rash bupropion [From Wellbutrin] Adverse Reaction (Verified 06/09/16 20:09) Palpitations All Systems Review: A 10-system review of systems was performed and is negative for pertinent findings except as documented above in the HPI. - Cardiovascular Cardiovascular: as per HPI, chest pain at rest, radiating jaw, neck or arm pain , palpitations - Psychiatric Psychiatric: anxiety Physical Examination Vital Signs Temp Pulse Resp BP Pulse Ox 08/31/16 09:03 98.0 F 63 14 104/66 100 08/31/16 02:53 98.1 F 70 16 109/70 97 08/30/16 23:30 100 08/30/16 22:47 98.3 F 65 12 122/78 100 08/30/16 22:19 16 123/65 08/30/16 20:30 74 18 129/76 99 08/30/16 18:28 97.9 F 78 20 153/76 100 Intake and Output 08/30/16 08/31/1608/31/17 23:59 07:59 15:59 Output Total 100 / 100 Balance -100 / -100 Output: Urine 100 / 100 Other: Weight 87.543 kg General: Conversant, No Apparent Distress HEENT: Atraumatic, Normocephaly, Mucus Membranes Moist Neck: No JVD, Normal carotid pulses Cardiac: Reg Rate and Rhythm, Normal S1 and S2, No Murmur Lungs: Normal Breath Sounds, No Wheeze, Rales, Rhonchi Neuro: Alert and responsive, No focal deficits noted Abdomen: Soft, Non-Tender Skin: No rashes noted on visualized skin Musculoskeletal: No Chest Wall Tenderness Extremities: No Clubbing, No Cyanosis, No Edema, Normal Pulses Results 08/31/16 05:06 08/31/16 05:06 Lab Results 08/31/16 08/31/16 08/31/16 05:06 05:06 05:06 WBC 9.1 Hgb 13.5 Hct 39.0 Plt Count 257 Sodium 138 Potassium 3.7 Chloride 108 Carbon Dioxide 24 BUN 11 Creatinine 0.77 Glucose 112 H Calcium 9.1 Magnesium 1.7 Troponin I 0.01 Short CBC 08/31/16 08/30/16 Range/Units 05:06 19:40 WBC 9.1 9.2 (4.3-11.1) K/mcL Hgb 13.5 13.3 (11.5-15.4) g/dL Hct 39.0 40.0 (35.3-44.9) % Plt Count 257 274 (140-400) K/mcL Neutrophils # 4.3 5.5 (1.6-8.9) K/mcL BMP 08/31/16 08/30/16 Range/Units 05:06 19:40 Sodium 138 137 (136-145) mEq/L Potassium 3.7 3.6 (3.5-4.5) mEq/L Chloride 108 104 (98-109) mEq/L Carbon Dioxide 24 26 (19-29) mEq/L BUN 11 11 (7-20) mg/dL Creatinine 0.77 0.82 (0.57-1.11) mg/dL Glucose 112 H 109 H (70-99) mg/dL Calcium 9.1 9.6 (8.6-10.8) mg/dL Cardiac Enzymes 08/31/16 08/30/16 Range/Units 05:06 19:40 Troponin I 0.01 0.00 (0-0.03) ng/mL Liver Function 08/30/16 Range/Units 19:40 Total Bilirubin 0.3 (0.2-1.2) mg/dL AST 15 (5-34) Units/L ALT 13 (0-55) Units/L Alkaline Phosphatase 76 (38-126) Units/L Albumin 3.5 (3.5-5.0) g/dL Impressions Chest X-Ray 08/30/16 18:32 IMPRESSION: No evidence of acute cardiopulmonary disease. D/ / Dennis Larsen MD / Dennis Larsen MD Interpreting Provider: Dennis Larsen MD Active Medications Acetaminophen (Tylenol) 650 mg PO Q6HR PRN PRN Reason: Mild Pain (1-3) Stop: 03/02/17 03:46 Aspirin (Aspirin Ec) 81 mg PO DAILY [facility] Stop: 03/02/17 09:01 Heparin Sodium (Porcine) (Heparin) 5,000 unit SQ Q12HCO [facility] Stop: 03/02/17 06:01 Last Admin: 08/31/16 06:25 Dose: Not Given Lorazepam (Ativan) 1 mg PO TID PRN PRN Reason: Anxiety Stop: 03/02/17 03:49 Morphine Sulfate (Morphine Sulfate) 2 mg IVP Q4HR PRN PRN Reason: Chest Pain Stop: 03/02/17 03:46 Naloxone HCl (Narcan) 0.4 mg IVP Q2MIN PRN PRN Reason: Opioid Reversal Stop: 03/02/17 03:46 Nitroglycerin (Nitroglycerin) 0.4 mg SL Q5M PRN PRN Reason: Chest Pain Stop: 03/02/17 03:49 Ondansetron HCl (Zofran) 4 mg IVP Q8HR PRN PRN Reason: Nausea And Vomiting Stop: 03/02/17 03:46 Pharmacy Profile Note (Patient Taking Own Medication) 0 each TP 4XW [facility] Stop: 03/02/17 09:01 Rosuvastatin Calcium (Crestor) 40 mg PO HS [facility] Stop: 03/02/17 21:01 Ticagrelor (Brilinta) 90 mg PO BID [facility] Stop: 03/02/17 06:01 Last Admin: 08/31/16 06:22 Dose: 90 mg - Imaging and Cardiology Echo: report reviewed Cardiac cath: report reviewed - EKG Interpretation EKG results cardiology: other (24 hr tele AVG HR 74, no bradycardic events or pauses, SR.) Consult Discharge Plan - Plan Referrals: Gene Rodriguez DO [Primary Care Provider] -
--- NOTE | 2016-08-31 10:09 | Electrocardiograph Report ---
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
--- NOTE | 2016-08-31 11:36 | Electrocardiograph Report ---
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
--- NOTE | 2016-08-31 11:49 | Nuclear Medicine Stress Report ---
Single NUC read Name: Sandra Guerrero Date of Study: 08/31/2016 Date: 1975 Ht: 66.0 in Medical Record#: [id number] Age: 41 Wt: 193.0 lb Gender: Female Order #: [id number] Location: [facility] Room: [facility] Reading Physician: Carmine Chacon DO, FACC, FASE, FASNC Ordering Physician: Raymundo Shah MD Inspector Repairer [place]: Glen Rivera Impression: Rest images obtained, which demonstrated a mild intensity, mid to apical inferior defect. Stress portion cancelled. Nuclear Summary: SPECT myocardial perfusion imaging using Tc99m Sestamibi given intravenously was performed at rest and following cardiac stress testing. The resting images were obtained following initial dose of 10.9 mCi. Findings: Inferior Perfusion Rest * The mid to apical inferior segments show a mild reduction in perfusion. Updated by Carmine Chacon DO, FACC, FASE, FASNC on 08/31/2016 11:41:50 AM electronically signed on 08/31/2016 11:43:11 AM with status of Final
[2016-08-31 11:54] VITALS: BP 102/65
--- NOTE | 2016-08-31 15:24 | Discharge Summary ---
Date of Encounter: 08/31/16 Time of Encounter: 14:30 - Discharge Diagnosis (1) Chest pain Priority: Primary Status: Resolved Comments: Patient denied chest pain or shortness of breath throughout this admission. She also denied palpitations. Seen and cleared by cardiology who suspected her symptoms are consistent with her anxiety. Follow-up outpatient. Qualifiers: Chest pain type: unspecified Qualified Code(s): R07.9 - Chest pain, unspecified (2) Smoker Priority: Secondary Status: Chronic Comments: light smoker at this point. Ever since her heart attack in May, patient has decreased from 30 cigarettes a day down to 5 cigarettes daily, she is actively quitting. (3) DVT prophylaxis Priority: Primary Status: Acute Comments: Subcutaneous heparin while admitted (4) CAD (coronary artery disease), [place] coronary artery Priority: Secondary Status: Chronic Qualifiers: [place] vs. transplanted heart: [place] heart Associated angina: with stable angina Qualified Code(s): I25.118 - Atherosclerotic heart disease of [place] coronary artery with other forms of angina pectoris (5) Anxiety Priority: Secondary Status: Chronic (6) Bradycardia Priority: Primary Status: Resolved (7) PVCs (premature ventricular contractions) Priority: Secondary Status: Chronic - Discharge Medications Home Medications: Omeprazole Magnesium [Prilosec Otc] 20 mg PO DAILY 06/09/16 [History] Tacrolimus [Protopic] 1 appl TP 4XW 06/09/16 [History] Rosuvastatin [Crestor] 40 mg PO HS #30 tablet 06/10/16 [Rx] Ticagrelor [Brilinta] 90 mg PO BID #60 tablet 06/10/16 [Rx] LORazepam [Ativan] 1 mg PO TID PRN 07/07/16 [History] Aspirin Enteric Coated [Aspirin EC] 81 mg PO DAILY 08/30/16 [History] Nitroglycerin 0.4 mg SL Q5M PRN 08/30/16 [History] Allergies/Adverse Reactions: Allergies formaldehyde Allergy (Verified 07/07/16 10:46) Rash polyethylene glycol Allergy (Verified 07/07/16 10:46) Rash Sulfa (Sulfonamide Antibiotics) Allergy (Verified 06/09/16 17:19) Rash sulfamethoxazole [From Bactrim] Allergy (Verified 06/09/16 17:19) Rash trimethoprim [From Bactrim] Allergy (Verified 06/09/16 17:19) Rash bupropion [From Wellbutrin] Adverse Reaction (Verified 06/09/16 20:09) Palpitations Procedures/tests Complete & Pending: Procedures Performed prior 72 hours Category Date Time Status NM clarisa perf SPECT single [NM] Routine Exams 08/31/16 03:48 Taken ECG 12 lead ECG [ECG] AM 0600 Y 08/31/16 06:00 Completed Date of admission: 08/30/16 22:01 Primary care physician: Amy Lewis Discharging clinician: Annalise Alcaraz Anticipated date of discharge: 08/31/16 - Patient Status Disposition: Home, Self-Care Condition: Good Functional capacity at discharge: independent ambulation Overall status at discharge: patient is back to baseline - Discharge Instructions Follow Up With: Gene Rodriguez DO [Primary Care Provider] - [facility] [Provider Group] Additional Instructions: Follow-up with primary care provider within one to 2 weeks, follow-up with cardiology as needed - Diet and Activity Activity: increase activity as tolerated Diet: low fat, low cholesterol, low salt diet Hospital course: Ms. Guerrero is a 41 year old female with past medical history of CAD status post stent to RCA in May 2016, PVCs, palpitations. Patient presented to the emergency department chief complaint chest tightness, palpitations, and worsening anxiety. She initially attributed her symptoms to anxiety however versus symptoms persisted and worsened throughout the day she became more anxious and noticed more frequent palpitations. She also noticed that she was bradycardic with a heart rate into the 40s and 50s on her home monitor and this prompted her presentation to the emergency department. Patient endorsed midsternally located chest burning that is worst at rest and improved with exertion. Workup in the emergency department unremarkable. Chest x-ray negative. Patient was admitted to the hospitalist service for further evaluation and management. Troponins were negative 3. Patient denied chest pain or shortness of breath throughout the admission. She also denied palpitations during the admission. Patient has had 2 left heart catheters with the first one being on 06/09/16 for an NSTEMI and at that time she had severe 1 vessel CAD and received CLARA to him RCA. She then had a repeat left heart catheter 3 days later for continued chest pain revealed mild CAD, ejection fraction of 60%, and patent RCA stent. No ECG changes during this visit. Stress test was initially ordered however canceled per cardiology as patient had a negative repeat left heart catheter and her symptoms were atypical. Her echo back in May revealed an ejection fraction of 60-65%. Cardiology recommended further control of the patient's anxiety and follow-up outpatient. She was instructed to take smaller doses of her Ativan at home as she states the full dose is too sedating so she was instructed to decrease her dose during the daytime. She was discharged home in stable condition with close outpatient follow-up recommended. ITS Impressions Chest X-Ray 08/30/16 18:32 IMPRESSION: No evidence of acute cardiopulmonary disease. D/ / Dennis Larsen MD / Dennis Larsen MD Interpreting Provider: Dennis Larsen MD - Time Spent with Patient Total time spent providing and/or coordinating discharge services: - Constitutional Vitals: Temp Pulse Resp BP Pulse Ox 97.8 F 78 14 102/65 100 08/31/16 11:53 08/31/16 11:53 08/31/16 11:53 08/31/16 11:53 08/31/16 11:53 General appearance: Present: cooperative, A&O X 3, pleasant, no acute distress, answers questions appropriately - Head Head exam: Present: atraumatic, normocephalic - Eye Eye exam: Present: PERRL, conjuntiva pink, sclera anicteric Pupils: Present: PERRL - Neck Neck exam general surgery: Present: supple, trachea midline. Absent: lymphadenopathy - Respiratory Respiratory exam: Present: CTAB. Absent: accessory muscle use, rales, respiratory distress, rhonchi, wheezes - Cardiovascular Cardiovascular exam: Present: RRR, +S1, +S2. Absent: diastolic murmur, gallop, rubs, systolic murmur - GI/Abdominal GI/Abdominal exam: Present: normal bowel sounds, soft, no peritoneal signs. Absent: distended, tenderness - Extremities Exam Extremities exam: Present: warm, radial pulses palpable and symetrical. Absent : calf tenderness, cyanotic, pedal edema - Neurological Exam Neurological exam: Present: alert, CN II-XII intact, normal gait, oriented X3, no focal deficits, strengths equal and symetr throughout. Absent: pronater drift, facial droop, speech deficit - Skin Skin exam: Present: dry, intact, normal color, warm
== END 2016-08-31 15:43 | disposition home or self-care (01) ==
LOC: 3BNU 18:23 → EMEROO 18:23 → 3BNU 22:39
PROVIDERS: ADMIT Pediatrics; ATTEND Nurse Practitioner Family

== ENCOUNTER 2016-11-04 22:34 | Observation (INO) ==
[2016-11-04] MEDS ORDERED: Aspirin 81 MG TAB.CHEW PO ONE (23:04)
[2016-11-04] MEDS ORDERED: Nitroglycerin 0.4 MG TAB.SUBL SL PRN (23:04)
--- NOTE | 2016-11-04 23:10 | Emergency Department Note ---
Disposition Clinical Impression: Chest pain Qualifiers: Chest pain type: unspecified Qualified Code(s): R07.9 - Chest pain, unspecified CAD (coronary artery disease), [place] coronary artery Qualifiers: [place] vs. transplanted heart: [place] heart Associated angina: with unspecified angina Qualified Code(s): I25.119 - Atherosclerotic heart disease of [place] coronary artery with unspecified angina pectoris Disposition: Admitted As Inpatient Condition: Fair Time of Disposition: 00:15 Chest Pain HPI - General Chief Complaint: ED Chest Pain Stated Complaint: ache in left shoulder and under arm Time Seen by Provider: 11/04/16 22:54 Source: patient Limitations: no limitations Vital Signs Reviewed: Yes Nursing Notes Reviewed: Yes - History of Present Illness HPI Narrative: 41-year-old female with CAD, presents with chest pain 4 out of 10 left-sided aching, chest pain radiating to her neck and jaw and down her left arm, she states intermittent throughout the day nonexertional, recent evaluation on November 01 for similar symptoms, she thought this might be anxiety but illustrator set recommended admission, she left AGAINST MEDICAL ADVICE secondary to frustration with the nurse practitioner who took care of her however at this time she states her pain is documented better and she would like to worked up. Patient denies fever chills hemoptysis leg swelling history of PE Pt complaint: chest pain Onset (ago): hour(s) Duration: intermittent Onset: during rest Pain Location: left chest Severity: mild Severity scale (1-10): 2 Quality: aching Pain Radiation: none Improves with: nothing Worsens with: nothing Associated symptoms: Reports: nausea. Denies: vomiting, diaphoresis, dyspnea, sense of impending doom Treatments prior to arrival chest pain: none - Related Data Home Medications Medication Instructions Recorded Confirmed Omeprazole Magnesium [Prilosec Otc] 20 mg PO DAILY 06/09/16 11/05/16 Tacrolimus [Protopic] 1 appl TP 4XW 06/09/16 11/05/16 LORazepam [Ativan] 1 mg PO TID PRN 07/07/16 11/05/16 Aspirin Enteric Coated [Aspirin EC] 81 mg PO DAILY 08/30/16 11/05/16 Nitroglycerin 0.4 mg SL Q5M PRN 08/30/16 11/05/16 Clopidogrel [Plavix] 75 mg PO DAILY 10/26/16 11/05/16 Rosuvastatin [Crestor] 10 mg PO HS 10/26/16 11/05/16 Allergies Allergy/AdvReac Type Severity Reaction Status Date / Time formaldehyde Allergy Rash Verified 11/04/16 22:45 polyethylene glycol Allergy Rash Verified 11/04/16 22:45 Sulfa (Sulfonamide Allergy Rash Verified 11/04/16 22:45 Antibiotics) sulfamethoxazole Allergy Rash Verified 11/04/16 22:45 [From Bactrim] trimethoprim [From Bactrim] Allergy Rash Verified 11/04/16 22:45 bupropion [From Wellbutrin] AdvReac Palpitation Verified 11/04/16 22:45 s All systems ED: reviewed and negative except as stated. Review of Systems: As Per HPI Constitutional: Denies: fever, chills Eyes: Denies: eye pain ENT ED: Denies: ear pain Cardiovascular: Reports: as per HPI, chest pain. Denies: palpitations, syncope Respiratory: Denies: cough, dyspnea Gastrointestinal: Denies: abdominal pain, nausea Genitourinary: Denies: urgency Musculoskeletal: Denies: back pain Integumentary: Denies: rash Neurological: Denies: headache Psychiatric: Denies: anxiety Chest Pain PMH - Past Medical History Medical history: Reports: arthritis, coronary artery disease, GERD, hypertension , myocardial infarction Surgical history: Reports: angioplasty/stent, , cholecystectomy Psychiatric history: Reports: anxiety, panic disorder [employer] history: Reports: no [employer] history - Social History Smoking Status: Current every day smoker Alcohol use: Reports: none Drug use: Reports: none Physical Exam Constitutional: alert and oriented, in NAD, vital signs reviewed and wnl Neck: normal inspection, neck is supple, no JVD Resp: normal chest inspection, no tenderness palpation of the left chest, CTA bilaterally, no resp distress, no wheezes/rales/rhonchi CV: RRR, no murmurs/gallops/rubs, S1 and S2 heard Extremity: +2 bilateral radial and posterial tibial pulses, no pedal edema GI: normal inspection, Soft, NTND, no peritoneal signs, no palpable abdominal aortic aneurysm Back: normal inspection, no tenderness to palpation Neuro: A&O3, no gross motor or sensory deficits bilaterally MSK: normal inspection, bilateral UE and LE with normal ROM Skin: No rashes, skin warm, dry, intact - General Limitations: no limitations General appearance: alert, in no apparent distress Course Course Narrative: 41-year-old female with chest pain left shoulder pain, similar to previous WA, ordered ASA and nitroglycerin, her pain is mild but Dr. Saeed did recommend that she be admitted previously and she left AGAINST MEDICAL ADVICE, especially concerned at this time she has angina or unstable angina, cbc, bmp, trop, cxr, will try aspirin nitroglycerin at this time Vital Signs Temperature 98.1 F 11/04/16 22:38 Pulse Rate 77 11/04/16 22:38 Respiratory Rate 16 11/04/16 22:38 Blood Pressure 131/82 11/04/16 22:38 O2 Sat by Pulse Oximetry 100 11/04/16 22:38 Temperature 98.1 F 11/04/16 22:38 Pulse Rate 73 11/05/16 00:17 Respiratory Rate 18 11/05/16 00:17 Blood Pressure 145/79 11/05/16 00:17 O2 Sat by Pulse Oximetry 100 11/05/16 00:17 Oxygen Delivery Oxygen Delivery Room Air Chest Pain - MDM Narrative Medical decision making narrative: 41-year-old female with chest pain nonexertional history of CAD recent stent in May, admission to Dr. Pablo Ponce given for possible Unstable angina given hx and risk factors. - Differential Diagnosis Likely: atypical chest pain, chest pain - Medical Records Medical records reviewed: Yes I reviewed the patient's medical records. - Lab Data Lab results reviewed: Yes I reviewed the patient's lab results. Result diagrams: 11/04/16 23:06 11/04/16 23:06 Lab Results 11/04/16 11/04/16 11/04/16 Range/Units 23:06 23:06 23:06 WBC 7.7 (4.3-11.1) K/mcL RBC 4.20 (3.82-4.97) M/mcL Hgb 12.9 (11.5-15.4) g/dL Hct 37.4 (35.3-44.9) % MCV 89.0 (83.0-100.0) fL MCH 30.7 (28.0-33.3) pg MCHC 34.5 (31.6-35.5) g/dL RDW 14.1 (11.5-14.5) % Plt Count 226 (140-400) K/mcL MPV 8.9 L (9.4-12.4) fL Immature Gran % 0.1 (0-4) % Seg Neutrophils % 46.9 % Lymphocytes % 41.5 % Monocytes % 9.2 % Eosinophils % 1.8 % Basophils % 0.5 % Neutrophils # 3.6 (1.6-8.9) K/mcL Lymphocytes # 3.2 (0.6-4.6) K/mcL Monocytes # 0.7 (0.0-1.3) K/mcL Eosinophils # 0.1 (0.0-0.6) K/mcL Basophils # 0.0 (0.0-0.2) K/mcL Immature Plt Fraction 1.3 (1.1-6.1) % Sodium 137 (136-145) mEq/L Potassium 3.7 (3.5-4.5) mEq/L Chloride 106 (98-109) mEq/L Carbon Dioxide 21 (19-29) mEq/L BUN 13 (7-20) mg/dL Creatinine 0.82 (0.57-1.11) mg/dL Est GFR ( Amer) > 60 (> 60) Est GFR (Non-Af Amer) > 60 (> 60) BUN/Creatinine Ratio 16 (6-26) Glucose 109 H (70-99) mg/dL Calculated Osmolality 285 (280-300) Calcium 9.2 (8.6-10.8) mg/dL Troponin I 0.00 (0-0.03) ng/mL - Radiology Data Radiology results reviewed: Yes I reviewed the patient's radiology results. Chest X-Ray 11/04/16 22:45 IMPRESSION: Negative portable chest. D/ / Philip Chaudhry MD / Philip Chaudhry MD Interpreting Provider: Philip Chaudhry MD - EKG Data EKG attestation: Yes I reviewed and interpreted this EKG. EKG shows normal: sinus rhythm (73 bpm MT 150 QRS 98 QTC 397 incomplete right bundle branch block no ST segment changes nno ST segment) Rhythm: NSR Heart Score - Score History: Moderately Suspicious EKG: Non Specific repolarisation Disturbance Age: Less than 45 Risk Factors: Equal/Greater than 3 risk factor or history of atherosclerotic disease Troponin: Less than normal limit HEART Score Total: 4 Attestation Statement - Attestation Attestation: I, Tanner Chung MD, personally evaluated this patient and discussed their management with the resident physician. I reviewed the resident's note and agree with the documented findings, medical decision making, and plan of care. 41-year-old female with a history of an WA and coronary artery stent approximately 5 months ago. Presents tonight complaining of some vague intermittent pains over the last 4 days. Pain is in the left shoulder, left neck, left upper arm, and left upper chest. She describes it as just a dull ache it does not necessarily seem to be associated with exertion but this comes and goes. Patient was apparently seen a few days ago for this but refused admission at that time. There is been no cough or fever. No nausea or vomiting. No diaphoresis. On examination patient is a well-developed well-nourished female in no acute distress. She is alert and oriented 3. There is no cyanosis or diaphoresis. Chest is nontender to palpation. Breath sounds are clear and equal bilaterally. Heart regular rate and rhythm with occasional PVCs. Abdomen is soft and nontender with normal bowel sounds. Labs reviewed. Troponin negative. EKG shows a normal sinus rhythm with a rate of 73, incomplete right bundle-branch, no acute ischemic changes and no significant change from prior EKG. chest x-ray negative. The hospitalist, Dr. Shah, was consulted and accepted admission of the patient.
[2016-11-04 23:19] LABS: Basophils % 0.5 %; Eosinophils # 0.1 K/mcL (0.0-0.6); Eosinophils % 1.8 %; Hematocrit 37.4 % (35.3-44.9); Hemoglobin 12.9 g/dL (11.5-15.4); Immature Granulocytes % 0.1 % (0-4); Immature Platelets 1.3 % (1.1-6.1); Lymphocytes # 3.2 K/mcL (0.6-4.6); Lymphocytes % 41.5 %; Mean Corpuscular HGB Conc 34.5 g/dL (31.6-35.5); Mean Corpuscular Hemoglobin 30.7 pg (28.0-33.3); Mean Platelet Volume 8.9 fL (9.4-12.4); Monocytes # 0.7 K/mcL (0.0-1.3); Monocytes % 9.2 %; Neutrophils # 3.6 K/mcL (1.6-8.9); Platelet Count 226 K/mcL (140-400); Red Cell Distribution Width 14.1 % (11.5-14.5); Segmented Neutrophils % 46.9 %
[2016-11-04 23:32] LABS: BUN/Creatinine Ratio 16 (6-26); Blood Urea Nitrogen 13 mg/dL (7-20); Calcium 9.2 mg/dL (8.6-10.8); Carbon Dioxide 21 mEq/L (19-29); Chloride 106 mEq/L (98-109); Glucose 109 mg/dL (70-99); Osmolality,Calculated 285 (280-300); Potassium 3.7 mEq/L (3.5-4.5); Sodium 137 mEq/L (136-145); eGFR For African Americans > 60 (> 60); eGFR For Non-African Americans > 60 (> 60)
[2016-11-05] MEDS ORDERED: *HR* Enoxaparin 100 MG/ML SYRINGE SQ STA ×2 (00:12→00:39)
[2016-11-05 01:06] LABS: INR 1.2; Prothrombin Time 12.7 Seconds (9.4-12.1)
[2016-11-05 01:09] LABS: Activated Partial Thrombo Time 34.5 Seconds (26.0-36.0)
[2016-11-05] MEDS ORDERED: Ondansetron 4 MG/2 ML VIAL IVP PRN (04:48)
[2016-11-05] MEDS ORDERED: *HR* Morphine 2 MG/ML SYRINGE IVP PRN (04:48)
[2016-11-05] MEDS ORDERED: Naloxone 0.4 MG/ML INJ IVP PRN (04:48)
[2016-11-05] MEDS ORDERED: Acetaminophen 325 MG TABLET PO PRN (04:48)
[2016-11-05] MEDS ORDERED: Nitroglycerin 0.4 MG TAB.SUBL SL PRN (04:51)
[2016-11-05] MEDS ORDERED: *HR* LORazepam 0.5 MG TABLET PO PRN (04:51)
--- NOTE | 2016-11-05 05:01 | Internal Med History&Physical ---
Date of Encounter: 11/05/16 Time of Encounter: 04:05 Assessment and Plan (1) Chest pain Current visit: No Status: Acute 1. Will repeat a second troponin this morning and order stress nuclear medicine test. 2. Will repeat EKG. 3. Order lipid panel. 4. Consult Cardiology given recent NC and PCI/Stent. Qualifiers: Chest pain type: precordial pain Qualified Code(s): R07.2 - Precordial pain (2) CAD (coronary artery disease), [place] coronary artery Current visit: Yes Status: Chronic 1. Continue home meds as appropriate. 2. Stress test and cardiology consult as above. 3. Patient counseled on need to quit smoking -- she plans to stop tomorrow. Qualifiers: [place] vs. transplanted heart: [place] heart Associated angina: with unspecified angina Qualified Code(s): I25.119 - Atherosclerotic heart disease of [place] coronary artery with unspecified angina pectoris (3) DVT prophylaxis Current visit: Yes Status: Acute 1. Heparin SQ. Internal Medicine - H&P: HPI Chief complaint: chest pain Admitted From: Emergency Dept Plans for Post Hospital Care: Home History of present illness: Ms. Guerrero is a 41 year old female who had developed chest pain and has had it off and on for about 3 days now. She had been going through cardiac rehabilitation after having undergone PCI and stent several months ago. She noted after one of her rehabilitation sessions that she developed some chest pain and tightness in her left chest which radiated to her left arm and neck. Symptoms would resolve later and recur with activity. Because symptoms would not resolve fully, she came to ER for evaluation. Workup was negative including an EKG. Presently, she is chest pain-free. She denies any diaphoresis or any dyspnea. She is a smoker, and she has been gradually quitting smoking. She has to stop date, which is tomorrow. She has not missed any of her medications since her heart catheterization and has taken them religiously. Family history is positive for premature coronary artery disease. Her father from a massive NC at age 4949 years old. Past Med Surg Social Fam HX - Past Medical History Attestation: Yes The following information was validated with the patient. Source: patient, old records reviewed Medical history: arthritis, coronary artery disease, GERD, hypertension, myocardial infarction Psychiatric history: anxiety, panic disorder - Past Surgical History Surgical History: angioplasty/stent, , cholecystectomy - Social History Smoking Status: Current every day smoker Smokeless Tobacco Status: No Alcohol use: none Drug use: none Activity Level: Independent ambulation - Family History Father Adopted: No Family Member Ethnicity: Non- Living Status: Hx Family Cardiac Disorders: Yes (NC,HTN,High cholesterol) Hx Family Respiratory Disorders: No Hx Family Cancer: No Hx Family GI Disorders: Yes (acid reflux) Hx Family Endocrine Disorder: No Hx Family Neuromuscular Disorders: No Hx Family Neurologic Disorders: No Hx Family HEENT Disorders: No Hx Family Autoimmune Disorders: (Agent orange) Internal Medicine - H&P: Meds Omeprazole Magnesium [Prilosec Otc] 20 mg PO DAILY 06/09/16 [History] Tacrolimus [Protopic] 1 appl TP 4XW 06/09/16 [History] LORazepam [Ativan] 1 mg PO TID PRN 07/07/16 [History] Aspirin Enteric Coated [Aspirin EC] 81 mg PO DAILY 08/30/16 [History] Nitroglycerin 0.4 mg SL Q5M PRN 08/30/16 [History] Clopidogrel [Plavix] 75 mg PO DAILY 10/26/16 [History] Rosuvastatin [Crestor] 10 mg PO HS 10/26/16 [History] 3 Allergy/AdvReac Type Severity Reaction Status Date / Time formaldehyde Allergy Rash Verified 11/04/16 22:45 polyethylene glycol Allergy Rash Verified 11/04/16 22:45 Sulfa (Sulfonamide Allergy Rash Verified 11/04/16 22:45 Antibiotics) sulfamethoxazole Allergy Rash Verified 11/04/16 22:45 [From Bactrim] trimethoprim [From Bactrim] Allergy Rash Verified 11/04/16 22:45 bupropion [From Wellbutrin] AdvReac Palpitation Verified 11/04/16 22:45 s - Constitutional Constitutional: no chills, no fever(s) - EENT Eyes: no blurry vision, no change in vision Ears: no ear pain, no tinnitus Nose, mouth and throat: no sore throat - Cardiovascular Cardiovascular ROS IM: chest pain, no diaphoresis, no dyspnea, no dyspnea on exertion, no palpitations, no syncope - Respiratory Respiratory: no cough, no hemoptysis - Gastrointestinal Gastrointestinal: no abdominal pain, no diarrhea, no nausea, no vomiting - Genitourinary Genitourinary: no dysuria, no flank pain, no hematuria - Musculoskeletal Musculoskeletal ROS IM: no arthralgias, no back pain - Integumentary Integumentary IM: no rash, no jaundice - Neurological Neurological ROS: no dizziness, no focal weakness, no frequent falls, no headache(s) - Psychiatric Psychiatric: no anxiety, no depression - Endocrine Endocrine IM: no polydipsia, no polyuria - Hematologic/Lymphatic Hematologic/Lymphatic: no lymphadenopathy - Allergic/Immunologic Allergic/Immunologic: no wheezing - Constitutional Vitals: Temp Pulse Resp BP Pulse Ox 98.1 F 73 18 135/72 100 11/04/16 22:38 11/05/16 00:17 11/05/16 02:07 11/05/16 02:07 11/05/16 00:17 General appearance: Present: cooperative, A&O X 3, pleasant - Head Head exam: Present: normal inspection - Eye Eye exam: Present: EOMI, PERRL. Absent: scleral icterus Pupils: Present: normal accommodation - ENT ENT exam: Present: mucous membranes dry, normal exam - Neck Neck exam general surgery: Present: full ROM, supple - Respiratory Respiratory exam: Present: CTAB. Absent: rales, rhonchi, wheezes - Cardiovascular Cardiovascular exam: Present: RRR, +S1, +S2. Absent: diastolic murmur, systolic murmur - GI/Abdominal GI/Abdominal exam: Present: normal bowel sounds, soft. Absent: hepatomegaly, splenomegaly, tenderness - Extremities Exam Extremities exam: Present: warm. Absent: calf tenderness, joint swelling, pedal edema - Back Exam Back exam: Present: normal inspection. Absent: CVA tenderness (L), CVA tenderness (R) - Neurological Exam Neurological exam: Present: alert, oriented X3, no focal deficits - Psychiatric Psychiatric exam: Present: normal affect, normal mood - Skin Skin exam: Present: dry, warm. Absent: rash Internal Med - H&P Results - Labs CBC & Chem 7: 11/04/16 23:06 11/04/16 23:06 - EKG Data -: EKG Interpreted by Myself - EKG Data Prior EKG available for review: yes When compared to previous EKG: there is no significant change EKG comments: 11/05/16 05:05 Sinus rhythm; no acute ST-T changes - Diagnostic Studies Chest x-ray Status: image reviewed by me (negative)
[2016-11-05] MEDS ORDERED: *HR* Heparin 5,000 UNIT/ML VIAL SQ SCH (06:00)
[2016-11-05 06:17] LABS: Alanine Aminotransferase 8 Units/L (0-55); Alkaline Phosphatase 68 Units/L (38-126); BUN/Creatinine Ratio 16 (6-26); Bilirubin,Total 0.3 mg/dL (0.2-1.2); Blood Urea Nitrogen 12 mg/dL (7-20); Calcium 8.9 mg/dL (8.6-10.8); Carbon Dioxide 21 mEq/L (19-29); Chloride 109 mEq/L (98-109); Chol/HDL Ratio 3.4 (0-4.9); Cholesterol 104 mg/dL (< 200); Glucose 92 mg/dL (70-99); HDL Cholesterol 31 mg/dL (40-59); LDL Cholesterol,Calculated 53 mg/dL (0-99); Magnesium 1.9 mg/dL (1.6-2.6); Osmolality,Calculated 285 (280-300); Potassium 3.8 mEq/L (3.5-4.5); Sodium 138 mEq/L (136-145); Total Protein 6.4 g/dL (6.0-8.3); Triglycerides 102 mg/dL (< 150); eGFR For African Americans > 60 (> 60); eGFR For Non-African Americans > 60 (> 60)
[2016-11-05 06:50] LABS: Aspartate Amino Transferase 11 Units/L (5-34)
[2016-11-05 07:33] LABS: Albumin 3.8 g/dL (3.5-5.0); Albumin/Globulin Ratio 1.5 (1.1-2.2); Globulin 2.6 g/dL (2.4-3.5)
[2016-11-05] MEDS ORDERED: Aspirin Enteric Coated 81 MG Tablet PO SCH (09:00)
[2016-11-05] MEDS ORDERED: [UNRECOGNIZED DRUG - OTHER] TP SCH (09:00)
--- NOTE | 2016-11-05 10:21 | Cardiology Consult Note ---
Date of Encounter: 11/05/16 Time of Encounter: 08:00 Assessment and Plan (1) Chest pain Current Visit: Yes Status: Acute Patient presents with atypical chest pain. No concerning ECG changes. Troponin negative x3. Patient reports pain is different than angina. Suspect musculoskeletal in etiology. EF normal per TTE in August 2016. Seen and examined in stress lab today, exercise nuclear ordered by overnight Hospitalist--no chest pain during test. Continue uninterrupted DAPT (asa + plavix) and statin. Hx of intolerance to betablocker d/t fatigue. Risk factor modification emphasized including heart healthy diet and tobacco cessation. Further recommendations to follow once stress resulted. Qualifiers: Chest pain type: intercostal pain Qualified Code(s): R07.82 - Intercostal pain (2) CAD (coronary artery disease), [place] coronary artery Current Visit: Yes Status: Chronic Hx of CAD s/p NSTEMI (05/2016) and PCI. Continue DAPT (asa + plavix) and statin. Hx of intolerance to betablockers. Risk factor modification. Follow-up with Dr. Montalvo as scheduled this week. Qualifiers: [place] vs. transplanted heart: [place] heart Associated angina: without angina Qualified Code(s): I25.10 - Atherosclerotic heart disease of [place] coronary artery without angina pectoris Discussion w patient/family: The assessment and plan as outlined above was discussed with the patient and/or family members who expressed understanding and agreement. All questions were answered. Thank you for involving us in the care of your patient. Please call with any questions. The patient will be discussed and reviewed with Dr. iLnk Saeed; anticipate sign -off from Cardiology if stress is negative. History of Present Illness Consult date: 11/05/16 Requesting physician: Raymundo Shah Consult reason: chest pain Chief complaint: chest pain History of present illness: Ms. Guerrero is a 41 year old female with PMH of CAD with hx of PCI to RCA 05/2016 , PVCs, palpitations that presented to the ER due to left-sided chest aching. She went to the ED a few days prior with similar symptoms, RENA negative and was discharged home. Reports symptoms started last week, first noticed at cardiac rehab. Reports pain is "aching" and similar to pulled muscle. Reports symptoms are not similar to prior angina or pain with NSTEMI. Recent CV testing: Holter 07/07/16: AVG HR 73, lowest HR 57, frequent PVCs. LHC 06/12/16: Mild CAD, EF 60%, patent RCA stent. LHC 06/09/16: Severe 1 vessel CAD, successful PTCA/CLARA to mRCA. Echo 06/10/16: EF 60-65%. Past Med Surg Social Fam HX - Past Medical History Attestation: Yes The following information was validated with the patient. Source: patient Medical history: arthritis, coronary artery disease, GERD, hypertension, myocardial infarction Psychiatric history: anxiety, panic disorder - Past Surgical History Surgical History: angioplasty/stent, , cholecystectomy - Social History Smoking Status: Current every day smoker Smokeless Tobacco Status: No Alcohol use: none Drug use: none - Family History Father Adopted: No Family Member Ethnicity: Non- Living Status: Hx Family Cardiac Disorders: Yes ([place],HTN,High cholesterol) Hx Family Respiratory Disorders: No Hx Family Cancer: No Hx Family GI Disorders: Yes (acid reflux) Hx Family Endocrine Disorder: No Hx Family Neuromuscular Disorders: No Hx Family Neurologic Disorders: No Hx Family HEENT Disorders: No Hx Family Autoimmune Disorders: (Agent orange) Medications and Allergies Omeprazole Magnesium [Prilosec Otc] 20 mg PO DAILY 06/09/16 [History] Tacrolimus [Protopic] 1 appl TP 4XW 06/09/16 [History] LORazepam [Ativan] 1 mg PO TID PRN 07/07/16 [History] Aspirin Enteric Coated [Aspirin EC] 81 mg PO DAILY 08/30/16 [History] Nitroglycerin 0.4 mg SL Q5M PRN 08/30/16 [History] Clopidogrel [Plavix] 75 mg PO DAILY 10/26/16 [History] Rosuvastatin [Crestor] 10 mg PO HS 10/26/16 [History] 3 Allergy/AdvReac Type Severity Reaction Status Date / Time formaldehyde Allergy Rash Verified 11/04/16 22:45 polyethylene glycol Allergy Rash Verified 11/04/16 22:45 Sulfa (Sulfonamide Allergy Rash Verified 11/04/16 22:45 Antibiotics) sulfamethoxazole Allergy Rash Verified 11/04/16 22:45 [From Bactrim] trimethoprim [From Bactrim] Allergy Rash Verified 11/04/16 22:45 bupropion [From Wellbutrin] AdvReac Palpitation Verified 11/04/16 22:45 s All Systems Review: A 10-system review of systems was performed and is negative for pertinent findings except as documented above in the HPI. - Cardiovascular Cardiovascular: as per HPI Physical Examination Vital Signs, Last 4 Hours Temp Pulse Resp BP Pulse Ox 11/05/16 07:36 98.4 F 64 14 99/61 97 General: Conversant, No Apparent Distress HEENT: Atraumatic, Normocephaly, Mucus Membranes Moist Cardiac: Reg Rate and Rhythm, Normal S1 and S2 Lungs: Normal Breath Sounds, No Wheeze, Rales, Rhonchi Neuro: Alert and responsive, No focal deficits noted Abdomen: Soft, Non-Tender Skin: No rashes noted on visualized skin Musculoskeletal: No Chest Wall Tenderness Extremities: No Edema, Normal Pulses Results 11/04/16 23:06 11/05/16 05:14 Lab Results 11/05/16 11/05/16 11/05/16 00:42 05:14 05:14 INR 1.2 APTT 34.5 Sodium 138 Potassium 3.8 Chloride 109 Carbon Dioxide 21 BUN 12 Creatinine 0.73 Glucose 92 Calcium 8.9 Magnesium 1.9 Total Bilirubin 0.3 AST 11 ALT 8 Alkaline Phosphatase 68 Troponin I 0.01 Active Medications Acetaminophen (Tylenol) 650 mg PO Q6HR PRN PRN Reason: Mild Pain (1-3) Stop: 05/07/17 04:49 Aspirin (Aspirin Ec) 81 mg PO DAILY [facility] Stop: 05/07/17 09:01 Clopidogrel Bisulfate (Plavix) 75 mg PO DAILY [facility] Stop: 05/07/17 09:01 Heparin Sodium (Porcine) (Heparin) 5,000 unit SQ Q12HCO [facility] Stop: 05/07/17 06:01 Last Admin: 11/05/16 05:16 Dose: Not Given Lorazepam (Ativan) 1 mg PO TID PRN PRN Reason: Anxiety Stop: 05/07/17 04:52 Morphine Sulfate (Morphine Sulfate) 2 mg IVP Q4HR PRN PRN Reason: Chest Pain Stop: 05/07/17 04:49 Naloxone HCl (Narcan) 0.4 mg IVP Q2MIN PRN PRN Reason: Opioid Reversal Stop: 05/07/17 04:49 Nitroglycerin (Nitroglycerin) 0.4 mg SL Q5MIN PRN PRN Reason: Chest Pain Stop: 05/06/17 23:05 Last Admin: 11/04/16 23:24 Dose: 0.4 mg Nitroglycerin (Nitroglycerin) 0.4 mg SL Q5M PRN PRN Reason: Chest Pain Stop: 05/07/17 04:52 Ondansetron HCl (Zofran) 4 mg IVP Q8HR PRN PRN Reason: Nausea And Vomiting Stop: 05/07/17 04:49 Pharmacy Profile Note (Patient Taking Own Medication) 0 each TP 4XW [facility] Stop: 05/07/17 09:01 Simvastatin (Zocor) 40 mg PO HS [facility] Stop: 05/07/17 21:01 - Imaging and Cardiology Stress Test: pending, report reviewed Echo: report reviewed Cardiac cath: report reviewed Other Results: 12 hour tele: avg HR=74 SR. Occasional PVC. - EKG Interpretation EKG results cardiology: personally reviewed Consult Discharge Plan - Plan Referrals: Gene Rodriguez DO [Primary Care Provider] -
[2016-11-05 12:10] VITALS: BP 92/57
--- NOTE | 2016-11-05 15:21 | Nuclear Medicine Stress Report ---
Exercise Nuclear Stress Name: Sandra Guerrero Date of Study: 11/05/2016 Date: 1975 Ht: 66.0 in Medical Record#: [id number] Age: 41 Wt: 199.0 lb Gender: Female Order #: [id number] Location: [facility] IP Room: [facility] Supervising Provider: Mami Lomas CNP Reading Physician: Carmine Chacon DO, FAC, [facility] Ordering Physician: Kasey Guerin CNP Primary Care Physician: Gene Rodriguez DO Stress Technologist: Alfonso Alcaraz, [employer], CCT Scientific Informatics Project Leader: Glen Rivera Indications: Chest Pain Impression: Exercise ECG is negative for ischemia. The exercise capacity was excellent. Gated EF = 70%. Perfusion imaging was negative for ischemia or infarct. History: Hypercholesteremia History of Smoking Prior PCI Stress Test Summary: Stress Test Type: Treadmill Protocol: Kamaljit Baseline Information: Initial Heart Rate: 69 Blood Pressure: 102/64 Stress Information: Stress Time: 10 min 41 sec Test Terminated Due to (primary): Fatigue Maximum Blood Pressure: 140/64 Maximum Heart Rate: 151 Percent Maximum Heart Rate Achieved: 85 Double Product: 21,140 METS Reached: 12.8 Nuclear Summary: SPECT myocardial perfusion imaging using Tc99m Sestamibi given intravenously was performed at rest and following cardiac stress testing. The resting images were obtained following initial dose of 11.4 mCi. Following stress an additional dose of 34.5 mCi was given at peak exercise or 30 seconds post regadenoson infusion. Medication Given: Time Medication Dose Units Route Findings: Stress Note * Resting ECG demonstrated normal sinus rhythm. * No baseline arrhythmias were noted. * Exercise ECG is negative for ischemia. * Occasional PVCs noted during stress. * The exercise capacity was excellent. * Patient had no chest pain during stress. * Normal hemodynamic responses to exercise. Study Quality * Study quality is average. Gated EF % * Gated EF = 70%. Left Ventricle * The left ventricle is not dilated. LVEDV = 107 mL. NORMALS * Normal wall motion. * Normal segmental perfusion in stress. Apical Perfusion Rest * The apical septal segment shows a mild reduction in perfusion, which resolved with stress imaging. This is c/w artifact. TID * No evidence of transient ischemic dilatation. TID ratio = 1.02. Lung Uptake * There is no evidence of increase lung uptake. Updated by Carmine Chacon DO, NATALIIA, JAYLENE, DEVANTE on 11/05/2016 3:13:34 PM electronically signed on 11/05/2016 3:15:11 PM with status of Final
--- NOTE | 2016-11-05 16:04 | Discharge Summary ---
Date of Encounter: 11/05/16 Time of Encounter: 14:10 - Discharge Diagnosis (1) Chest pain Priority: Primary Status: Acute Comments: Patient presented to the emergency department with 3 day history of chest pain. She began having chest pain during cardiac rehabilitation session. They resolve spontaneously, however would return again later with exertion. She presented to the emergency room for evaluation. Chest x-ray was negative. Stress test was negative for ischemia or infarct, gated EF was 70%. Troponins were negative 2. Patient denies chest pains currently. She was evaluated by cardiology who recommended that patient continue on interrupted deep T and statin. She has a history of intolerance to beta blockers due to fatigue, she is not taking one currently. They are going to make further recommendations following stress test. Patient states that she has an appointment with Dr. Montalvo on Monday, she wanted to sign out AMA if she needed to leave by 3:00. We were notified that stress test would not be read until 3:00. Patient states that she did not want to wait and signed out AMA. Qualifiers: Chest pain type: intercostal pain Qualified Code(s): R07.82 - Intercostal pain (2) DVT prophylaxis Priority: Secondary Status: Acute Comments: She is ambulatory. She is on DAPT. She also received Lovenox. Heparin 5000 units subcutaneous twice a day. (3) CAD (coronary artery disease), [place] coronary artery Priority: Secondary Status: Chronic Comments: Patient has been pain-free. Plan as above for chest pain. Qualifiers: [place] vs. transplanted heart: [place] heart Associated angina: without angina Qualified Code(s): I25.10 - Atherosclerotic heart disease of [place] coronary artery without angina pectoris - Discharge Medications Home Medications: Omeprazole Magnesium [Prilosec Otc] 20 mg PO DAILY 06/09/16 [History] Tacrolimus [Protopic] 1 appl TP 4XW 06/09/16 [History] LORazepam [Ativan] 1 mg PO TID PRN 07/07/16 [History] Aspirin Enteric Coated [Aspirin EC] 81 mg PO DAILY 08/30/16 [History] Nitroglycerin 0.4 mg SL Q5M PRN 08/30/16 [History] Clopidogrel [Plavix] 75 mg PO DAILY 10/26/16 [History] Rosuvastatin [Crestor] 10 mg PO HS 10/26/16 [History] Allergies/Adverse Reactions: 3 Allergy/AdvReac Type Severity Reaction Status Date / Time formaldehyde Allergy Rash Verified 11/04/16 22:45 polyethylene glycol Allergy Rash Verified 11/04/16 22:45 Sulfa (Sulfonamide Allergy Rash Verified 11/04/16 22:45 Antibiotics) sulfamethoxazole Allergy Rash Verified 11/04/16 22:45 [From Bactrim] trimethoprim [From Bactrim] Allergy Rash Verified 11/04/16 22:45 bupropion [From Wellbutrin] AdvReac Palpitation Verified 11/04/16 22:45 s Procedures/tests Complete & Pending: Procedures Performed prior 72 hours Category Date Time Status NM clarisa perf SPECT multi [NM] Routine Exams 11/05/16 04:51 Taken ECG 12 lead ECG [ECG] AM 0600 Y 11/05/16 06:00 Ordered SP exercise nuclear stress Routine Y 11/05/16 04:48 Completed Date of admission: 11/05/16 00:36 Primary care physician: Amy Lewis Consults: 11/05/16 04:50 Consult to Physician [CONS] Routine Consulting Provider: Link Saeed Reason for Consult: chest pain; recent PCI/stent Call Completed: No Discharging clinician: Kasey Guerin Anticipated date of discharge: 11/05/16 - Patient Status Disposition: Left Against Medical Advice Condition: Fair - Discharge Instructions Follow Up With: Gene Rodriguez DO [Primary Care Provider] - Hospital course: Ms. Guerrero is a 41 year old female with past medical history of [place], bradycardia , smoking, anxiety. Patient was brought to the emergency department for 3 day history of chest pain with exertion. Patient first noticed it during cardiac rehabilitation 1 day. A relieved spontaneously, however, and it would happen again with exertion. Patient had been systemically with PCI in May,. Due to her recent history, she presented to the emergency department for evaluation. She was seen by cardiology and they were going to be further recommendations after the stress test, she did not want to wait for the stress test results will follow up with Dr. Montalvo on Monday, 3 days from now. Cardiology did recommend continuing the DAPT uninterrupted for a year, continue statin. She is intolerant to beta blockers due to fatigue, she has not taking 1 currently. Patient has started smoking cessation. Chest x-ray is negative. Troponins were negative 2. Stress test was negative for ischemia or infarct of the gated EF of 70%. Patient on echocardiogram in May, with preserved EF, indeterminant diastolic dysfunction, no significant valvular dysfunction. Patient stated that she needed to leave by 3:00. Apparently there was a technical issue and physician was not going to be able to read stress test until 1500. Patient decided to sign out AMA and will follow up with Dr. Montalvo in the office. - Time Spent with Patient Total time spent providing and/or coordinating discharge services: Less than 30 minutes - Constitutional Vitals: Temp Pulse Resp BP Pulse Ox 98.1 F 67 16 92/57 98 11/05/16 12:08 11/05/16 12:08 11/05/16 12:08 11/05/16 12:08 11/05/16 12:08 General appearance: Present: cooperative, A&O X 3, pleasant, no acute distress, answers questions appropriately - Head Head exam: Present: atraumatic, normal inspection, normocephalic - Eye Eye exam: Present: normal appearance, conjuntiva pink, sclera anicteric - Neck Neck exam general surgery: Present: supple, trachea midline. Absent: lymphadenopathy, tenderness - Respiratory Respiratory exam: Present: CTAB. Absent: accessory muscle use, chest wall tenderness, rales, rhonchi, wheezes - Cardiovascular Cardiovascular exam: Present: RRR, +S1, +S2. Absent: diastolic murmur, gallop, rubs, systolic murmur - GI/Abdominal GI/Abdominal exam: Present: normal bowel sounds, soft. Absent: distended, tenderness - Extremities Exam Extremities exam: Present: warm, radial pulses palpable and symmetrical. Absent : calf tenderness, cyanotic, pedal edema - Neurological Exam Neurological exam: Present: alert, oriented X3, no focal deficits, pronater drift. Absent: facial droop, speech deficit - Skin Skin exam: Present: dry, intact, normal color, warm. Absent: rash
--- NOTE | 2016-11-07 21:39 | Electrocardiograph Report ---
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
== END 2016-11-05 15:00 | disposition left against medical advice (07) ==
LOC: EMEROO 22:34 → 3BNU 22:34
PROVIDERS: ADMIT Pediatrics; ATTEND Registered Nurse